=== PATIENT | male | born 1960 | race Two or more races ===

== ENCOUNTER 2023-12-26 13:18 | Inpatient (IN) | payer OTHER ==
[~2023-12-26] VITALS: Ht 175.3 cm; Wt 72.6 kg
[2023-12-26] MEDS ORDERED: COZAAR25 MG PO (14:28)
[2023-12-26] MEDS ORDERED: LANTUS SOL100 UNIT/1 SQ (14:28)
[2023-12-26] MEDS ORDERED: HUMALOG100 UNIT/2 SQ (14:29)
--- NOTE | 2023-12-26 14:33 | NUR ---
PTE ALERTA Y ORIENTADA X3 REFIERE VENIR A VASYL DEBIDO A QUE EL MISMO TIENE RESULTADOS DE LAB CON NIVELES DE HEMOGLOBINA EN 6.8. SE MIDEN S/V Y SE UBICA.
[2023-12-26] MEDS ORDERED: 0.9 % SODIUM CHLORIDE 1,000 ML IV SCH ×2 (15:00→19:15)
--- NOTE | 2023-12-26 15:42 | NUR ---
SE ORIENTA A PTE SOBRE TX MEDICO ORDENADO POR . SE REALIZA JOHN DE MUESTRA DE LAB [place] ORDEN MEDICA Y BAJO MEDIDAS ASEPTICAS. VENOPUNCION PATENTE X2 BLANCA DE EDEMA Y ERITEMA BAJANDO IV FLUIDS POR REGULADOR. SE REQUISAN 3 UNIDADES PRBCS, SE ENTREGAN DOCS A LABORATORIO.
[2023-12-26 15:50] LABS: MEAN CELL VOLUME 78.9 fL (80.0-100.00); MEAN CORPUSCULAR HGB CONC 34.1 g/dl (32.0-36.0); PLATELET COUNT 164 K/uL (150-450); RED BLOOD COUNT 2.82 M/uL (4.00-6.00); RED CELL DISTRIBUTION WIDTH 15.1 % (11.5-14.5)
[2023-12-26 15:59] LABS: HEMATOCRIT 22.3 % (39.0-48.0); HEMOGLOBIN 7.6 g/dL (13-16.00); MEAN CORPUSCULAR HEMOGLOBIN 26.9 pg (27.00-32.0)
[2023-12-26 16:04] LABS: INR 1.06; PROTHROMBIN TIME 11.5 SECONDS (9.0-11.5)
[2023-12-26 16:19] LABS: CALCIUM 8.8 mg/dL (8.5-10.1); GFR 6.85; POTASSIUM 4.79 mEq/L (3.5-5.1)
[2023-12-26 16:29] LABS: PH,URINE 5.5 (5.0-8.0); URINE APPEARANCE Clear; URINE BILIRRUBIN Negative (NEGATIVE); URINE BLOOD NHT; URINE COLOR Yellow; URINE KETONE Negative (NEGATIVE); URINE LEUKOCYTE Trace; URINE NITRATE Negative; URINE UROBILINOGEN 0.2 E.U./dl
[2023-12-26 16:32] LABS: URINE BACTERIA 35.2 uL (0.0-1933); URINE EPITHELIAL CELLS 8.8 uL (0.0-38.8); URINE RBC 2.5 uL (0.0-20.8); URINE WBC 60.2 uL (0.0-23.2)
[2023-12-26 16:40] LABS: CREATININE SERUM 8.04 mg/dL (0.70-1.30)
[2023-12-26 16:59] LABS: URINE CAST 0.15 uL (0.0-1.40); URINE GLUCOSE 500 MG/DL (NEGATIVE); URINE PROTEIN 300 (NEGATIVE)
[2023-12-26] MEDS ORDERED: INSULIN LISPRO 1,000 UNIT/10 ML UNITS SUBCUTANEO PRN (19:15)
[2023-12-26] MEDS ORDERED: hydrALAZINE HCL 25 MG TABLET PO PRN (19:15)
[2023-12-26] MEDS ORDERED: DEXTROSE 50 % IN WATER 0.5 G/ML DISP.SYRIN IV PRN (19:15)
[2023-12-26] MEDS ORDERED: hydrALAZINE HCL 20 MG VIAL IV ONE (19:15)
[2023-12-26] MEDS ORDERED: ACETAMINOPHEN 500 MG GEL..CAP PO PRN (19:15)
[2023-12-26 22:39] VITALS: BP 157/62
[2023-12-27 00:48] VITALS: BP 176/70; O2SAT 92
[2023-12-27 01:39] LABS: ABG PH 7.413 (7.35-7.45); ABG PO2 85.9 mmHg (80-100); BICARBONATE 20.6 mmol/l (23-25); SaO2 96.5 %; Tco2 21.6 mmol/l
[2023-12-27 01:40] LABS: allen test SATISFACTORY; o2 21 %; puncture site RADIAL RIGHT
[2023-12-27] MEDS ORDERED: FAMOTIDINE/PF 20 MG in 0.9 % SODIUM CHLORIDE 8 ML IV PUSH SCH (09:00)
[2023-12-27] MEDS ORDERED: NIFEDIPINE 30 MG TAB.SA.OSM PO SCH (09:00)
[2023-12-27 09:36] VITALS: BP 183/85; O2SAT 98
[2023-12-27] MEDS ORDERED: FUROsemide 20 MG/2 ML VIAL IV SCH (12:45)
[2023-12-27] MEDS ORDERED: CARVEDILOL 12.5 MG TABLET PO NR (13:00)
[2023-12-27] MEDS ORDERED: LOSARTAN POTASSIUM 100 MG TABLET PO NR (13:00)
[2023-12-27] MEDS ORDERED: AMLODIPINE BESYLATE 10 MG TABLET PO NR (13:00)
[2023-12-27 18:36] VITALS: BP 150/78; O2SAT 97
[2023-12-28 00:54] VITALS: BP 182/82; O2SAT 96
[2023-12-28 06:25] LABS: HEMATOCRIT 34.2 % (39.0-48.0); HEMOGLOBIN 11.8 g/dL (13-16.00); MEAN CELL VOLUME 79.7 fL (80.0-100.00); MEAN CORPUSCULAR HEMOGLOBIN 27.6 pg (27.00-32.0); MEAN CORPUSCULAR HGB CONC 34.6 g/dl (32.0-36.0); PLATELET COUNT 165 K/uL (150-450); RED BLOOD COUNT 4.29 M/uL (4.00-6.00); RED CELL DISTRIBUTION WIDTH 15.6 % (11.5-14.5)
[2023-12-28 08:20] LABS: CHOL HDL RATIO 3.6 (0-5.0); MAGNESIUM 1.8 mg/dL (1.8-2.4); PHOSPHOROUS 5.2 mg/dL (2.5-4.9); TSH 1.44 uIU/mL (0.358-3.74)
[2023-12-28] MEDS ORDERED: AMLODIPINE BESYLATE 10 MG TABLET PO SCH (09:00)
[2023-12-28] MEDS ORDERED: LOSARTAN POTASSIUM 50 MG TABLET PO SCH (09:00)
[2023-12-28] MEDS ORDERED: CARVEDILOL 12.5 MG TABLET PO SCH (09:00)
[2023-12-28 10:14] VITALS: BP 180/80; O2SAT 99
[2023-12-28 18:18] VITALS: BP 164/79
[2023-12-29 02:23] VITALS: BP 170/72
[2023-12-29] MEDS ORDERED: NIFEDIPINE 60 MG TAB.SA.OSM PO SCH (09:00)
[2023-12-29] MEDS ORDERED: SODIUM CHLORIDE 0.45 % 1,000 ML IV SCH (12:15)
[2023-12-29] MEDS ORDERED: DOXAZOSIN MESYLATE 2 MG TABLET PO NR (13:00)
[2023-12-29] MEDS ORDERED: HEPARIN SODIUM,PORCINE 1,000 UNITS/ML VIAL IV SCH (16:45)
[2023-12-29] MEDS ORDERED: HEPARIN SODIUM,PORCINE 1,000 UNITS/ML VIAL SPEPROC ONE (16:45)
[2023-12-29 20:14] VITALS: BP 182/86
[2023-12-30 01:45] VITALS: BP 162/78
[2023-12-30 07:10] LABS: BILIRUBIN TOTAL 0.5 mg/dL (0.3-1.2); CALCIUM 8.5 mg/dL (8.5-10.1); GFR 5.99; GLOBULINA 3.4 G/DL (2.4-3.5); PHOSPHOROUS 5.2 mg/dL (2.5-4.9); POTASSIUM 4.66 mEq/L (3.5-5.1); TOTAL PROTEIN 6.4 gm/dL (6.4-8.2)
[2023-12-30 08:10] LABS: CREATININE SERUM 9.04 mg/dL (0.70-1.30)
[2023-12-30 08:51] VITALS: BP 180/82; O2SAT 97
[2023-12-30] MEDS ORDERED: DOXAZOSIN MESYLATE 2 MG TABLET PO SCH (09:00)
[2023-12-30] MEDS ORDERED: TUBERCULIN,PURIF.PROT.DERIV. 10 SKIN.TEST SKIN.TEST ID NR (14:45)
[2023-12-30 15:43] LABS: URIC ACID 8.2 mg/dL (3.5-8.5)
[2023-12-30 19:22] VITALS: BP 160/83; O2SAT 96
[2023-12-31] MEDS ORDERED: ENALAPRILAT DIHYDRATE 1.25 MG/ML VIAL IV ONE (01:20)
[2023-12-31] MEDS ORDERED: MORPHINE SULFATE 2 MG/ML CARTRIDGE IV ONE (01:20)
[2023-12-31 04:00] VITALS: BP 167/77
[2023-12-31 09:59] VITALS: BP 174/89; O2SAT 98
[2023-12-31 16:49] VITALS: BP 147/70; O2SAT 99
[2023-12-31] MEDS ORDERED: INSULIN GLARGINE,HUM.REC.ANLOG 1,000 UNITS/10 ML UNITS SUBCUTANEO SCH (21:00)
[2024-01-01 00:59] VITALS: BP 179/82; O2SAT 95
[2024-01-01 07:09] LABS: hav igm Negative (Negative); hcv Non Reactive (Non Reactive); hep b c Negative (Negative)
[2024-01-01] MEDS ORDERED: INSULIN LISPRO 1,000 UNIT/10 ML UNITS SUBCUTANEO SCH ×2 (08:00→12:00)
[2024-01-01 09:39] VITALS: BP 179/82; O2SAT 97
[2024-01-01 16:39] VITALS: BP 162/73; O2SAT 98
[2024-01-01] MEDS ORDERED: HEPARIN SODIUM,PORCINE 5,000 UNITS/ML VIAL IV ONE (17:30)
[2024-01-02 02:05] VITALS: BP 160/70; O2SAT 97
[2024-01-02 08:34] VITALS: BP 164/4; O2SAT 98
[2024-01-02 12:04] LABS: hep b s ag Negative
[2024-01-02 15:51] LABS: BILIRUBIN TOTAL 0.39 mg/dL (0.3-1.2); CALCIUM 8.2 mg/dL (8.5-10.1); GFR 8.95; GLOBULINA 3.4 G/DL (2.4-3.5); POTASSIUM 4.58 mEq/L (3.5-5.1); TOTAL PROTEIN 6.4 gm/dL (6.4-8.2)
[2024-01-02 16:01] LABS: CREATININE SERUM 6.38 mg/dL (0.70-1.30)
[2024-01-02 18:13] VITALS: BP 196/78; O2SAT 97
[2024-01-03 01:34] VITALS: BP 182/89
[2024-01-03 05:45] VITALS: BP 179/84
[2024-01-03 08:00] VITALS: BP 158/77; O2SAT 98
[2024-01-03] MEDS ORDERED: HEPARIN SODIUM,PORCINE 5,000 UNITS/ML VIAL IV NR (17:30)
[2024-01-03 20:04] VITALS: BP 136/75
[2024-01-03] MEDS ORDERED: DOXAZOSIN MESYLATE 4 MG TABLET PO SCH (21:00)
[2024-01-04 00:12] VITALS: BP 170/80; O2SAT 96
[2024-01-04 01:54] VITALS: BP 130/80
[2024-01-04] MEDS ORDERED: NIFEDIPINE 90 MG TAB.SA.OSM PO SCH (09:00)
[2024-01-04 09:20] VITALS: BP 170/85
[2024-01-04 16:24] VITALS: BP 184/68
[2024-01-05 03:18] VITALS: BP 180/80; O2SAT 98
[2024-01-05 08:57] VITALS: BP 177/81
[2024-01-05 16:37] VITALS: BP 174/78
[2024-01-06 02:23] VITALS: BP 176/71; O2SAT 96
[2024-01-06 07:05] LABS: HEMATOCRIT 28.7 % (39.0-48.0); HEMOGLOBIN 9.9 g/dL (13-16.00); MEAN CELL VOLUME 79.8 fL (80.0-100.00); MEAN CORPUSCULAR HEMOGLOBIN 27.5 pg (27.00-32.0); MEAN CORPUSCULAR HGB CONC 34.4 g/dl (32.0-36.0)
[2024-01-06 07:18] LABS: PLATELET COUNT 118 K/uL (150-450)
[2024-01-06 10:30] VITALS: BP 138/77; O2SAT 95
[2024-01-06] MEDS ORDERED: VANCOMYCIN HCL 1,000 MG VIAL IV STA (11:49)
[2024-01-06] MEDS ORDERED: CEFEPIME HCL 1,000 MG VIAL IV SCH (17:00)
[2024-01-06] MEDS ORDERED: VANCOMYCIN HCL 500 MG VIAL IV SCH (17:00)
[2024-01-06] MEDS ORDERED: FLUCONAZOLE IN NACL,ISO-OSM 2 MG/ML ML IV SCH (17:00)
[2024-01-06] MEDS ORDERED: LACTOBACILLUS ACIDOPHILUS 1 CAP CAP PO SCH (17:00)
[2024-01-06] MEDS ORDERED: INSULIN LISPRO 1,000 UNIT/10 ML UNITS SUBCUTANEO SCH (17:00)
[2024-01-06] MEDS ORDERED: ACETAMINOPHEN 500 MG GEL..CAP PO SCH (18:00)
[2024-01-06] MEDS ORDERED: ORPHENADRINE CITRATE 100 MG TABLET PO SCH (18:13)
[2024-01-06 18:16] VITALS: BP 125/60; O2SAT 97
[2024-01-06] MEDS ORDERED: HEPARIN SODIUM,PORCINE 5,000 UNITS/ML VIAL IV NR (19:45)
[2024-01-06 22:50] VITALS: BP 153/77; O2SAT 95
[2024-01-07 00:15] VITALS: BP 146/67; O2SAT 96
[2024-01-07] MEDS ORDERED: ONDANSETRON HCL 2 MG/ML VIAL IV PRN (00:15)
[2024-01-07 01:00] LABS: PROSTATIC SPECIFIC ANTIGEN 0.495 NG/ML (0.010-4.00)
[2024-01-07 01:39] LABS: CALCIUM 8.2 mg/dL (8.5-10.1); GFR 13.15; POTASSIUM 3.63 mEq/L (3.5-5.1)
[2024-01-07 02:25] LABS: CREATININE SERUM 4.57 mg/dL (0.70-1.30); GFR 13.15
[2024-01-07 02:26] LABS: CALCIUM 8.2 mg/dL (8.5-10.1); CREATININE SERUM 4.57 mg/dL (0.70-1.30); POTASSIUM 3.63 mEq/L (3.5-5.1)
[2024-01-07 02:27] LABS: ALBUMIN 2.7 gm/dL (3.4-5.0); PHOSPHOROUS 1.8 mg/dL (2.5-4.9)
[2024-01-07 06:38] LABS: URINE APPEARANCE Turbid; URINE BILIRRUBIN Negative (NEGATIVE); URINE BLOOD Moderate; URINE COLOR Yellow; URINE KETONE Trace (NEGATIVE); URINE LEUKOCYTE Trace; URINE NITRATE Negative; URINE PROTEIN >=1000 (NEGATIVE); URINE UROBILINOGEN 0.2 E.U./dl
[2024-01-07 06:43] LABS: URINE BACTERIA 180.1 uL (0.0-1933); URINE CAST 20.64 uL (0.0-1.40); URINE EPITHELIAL CELLS 51.7 uL (0.0-38.8); URINE RBC 11.1 uL (0.0-20.8); URINE WBC 226.5 uL (0.0-23.2)
[2024-01-07 07:10] LABS: URINE CRYSTALS MODERATE /HPF; URINE GLUCOSE 250 MG/DL (NEGATIVE)
[2024-01-07] MEDS ORDERED: FLUTICASONE PROPIONATE 50 MCG SPRAY NASAL SCH (09:00)
[2024-01-07] MEDS ORDERED: LOSARTAN POTASSIUM 100 MG TABLET PO SCH (09:00)
[2024-01-07 09:20] VITALS: BP 140/57; O2SAT 93
[2024-01-07] MEDS ORDERED: MEGESTROL ACETATE 400 MG/10 ML BLIST PACK PO SCH (12:00)
[2024-01-07] MEDS ORDERED: POTASSIUM PHOS,M-BASIC-D-BASIC 15 MM in 0.9 % SODIUM CHLORIDE 250 ML IV ONE (14:00)
[2024-01-07 16:32] VITALS: BP 122/70; O2SAT 98
[2024-01-07] MEDS ORDERED: AMINO ACIDS 1 EACH TABLET PO SCH (17:00)
[2024-01-08 01:23] VITALS: BP 143/75; O2SAT 96
[2024-01-08 06:16] LABS: HEMATOCRIT 28.3 % (39.0-48.0); HEMOGLOBIN 9.5 g/dL (13-16.00); MEAN CELL VOLUME 80.5 fL (80.0-100.00); MEAN CORPUSCULAR HGB CONC 33.5 g/dl (32.0-36.0); RED BLOOD COUNT 3.51 M/uL (4.00-6.00); RED CELL DISTRIBUTION WIDTH 14.9 % (11.5-14.5)
[2024-01-08 06:18] LABS: PLATELET COUNT 112 K/uL (150-450)
[2024-01-08 06:29] LABS: ERYTHROCYTE SEDIMENTATION RATE 84 mm/hr
[2024-01-08 06:34] LABS: ALBUMIN 2.6 gm/dL (3.4-5.0); BILIRUBIN TOTAL 0.47 mg/dL (0.3-1.2); GLOBULINA 3.5 G/DL (2.4-3.5); POTASSIUM 3.88 mEq/L (3.5-5.1); TOTAL PROTEIN 6.1 gm/dL (6.4-8.2)
[2024-01-08 07:37] LABS: C-REACTIVE PROTEIN 17.5 MG/DL (0.00-0.29); GFR 7.57
[2024-01-08 07:38] LABS: CREATININE SERUM 7.38 mg/dL (0.70-1.30)
[2024-01-08 08:45] VITALS: BP 162/79
[2024-01-08] MEDS ORDERED: INSULIN LISPRO 1,000 UNIT/10 ML UNITS SUBCUTANEO SCH (12:00)
[2024-01-08 16:47] VITALS: BP 155/78; O2SAT 97
[2024-01-08] MEDS ORDERED: MUPIROCIN 22 GM OINT..GM TUBE NASAL SCH (17:00)
[2024-01-08] MEDS ORDERED: INSULIN GLARGINE,HUM.REC.ANLOG 1,000 UNITS/10 ML UNITS SUBCUTANEO SCH (21:00)
[2024-01-09] MEDS ORDERED: ONDANSETRON HCL 2 MG/ML VIAL IV SCH (01:00)
[2024-01-09 02:31] VITALS: BP 166/76; O2SAT 95
[2024-01-09 08:20] VITALS: BP 165/103; O2SAT 95
[2024-01-09] MEDS ORDERED: CHLORHEXIDINE GLUCONATE 120 ML BOTTLE TOP SCH (09:00)
[2024-01-09] MEDS ORDERED: INSULIN LISPRO 1,000 UNIT/10 ML UNITS SUBCUTANEO SCH ×2 (12:00→17:00)
[2024-01-09 18:04] VITALS: BP 160/81; O2SAT 97
[2024-01-09] MEDS ORDERED: GABAPENTIN 400 MG CAPSULE PO SCH (21:00)
[2024-01-09] MEDS ORDERED: MORPHINE SULFATE 2 MG/ML CARTRIDGE IV PRN (21:00)
[2024-01-09] MEDS ORDERED: TAMSULOSIN HCL 0.4 MG CAP PO SCH (21:00)
[2024-01-09] MEDS ORDERED: INSULIN GLARGINE,HUM.REC.ANLOG 1,000 UNITS/10 ML UNITS SUBCUTANEO SCH (21:00)
[2024-01-10 02:27] VITALS: BP 150/73; O2SAT 95
[2024-01-10 04:41] LABS: HEMATOCRIT 26.5 % (39.0-48.0); HEMOGLOBIN 9.4 g/dL (13-16.00); MEAN CELL VOLUME 78.9 fL (80.0-100.00); MEAN CORPUSCULAR HEMOGLOBIN 27.9 pg (27.00-32.0); MEAN CORPUSCULAR HGB CONC 35.3 g/dl (32.0-36.0); PLATELET COUNT 166 K/uL (150-450); RED BLOOD COUNT 3.36 M/uL (4.00-6.00); RED CELL DISTRIBUTION WIDTH 14.6 % (11.5-14.5)
[2024-01-10 06:01] LABS: ERYTHROCYTE SEDIMENTATION RATE 102 mm/hr
[2024-01-10 07:59] VITALS: BP 160/73; O2SAT 97
[2024-01-10 17:38] VITALS: BP 162/84
[2024-01-10] MEDS ORDERED: HEPARIN SODIUM,PORCINE 5,000 UNITS/ML VIAL IV ONE (20:45)
[2024-01-11 01:42] VITALS: BP 143/67; O2SAT 97
[2024-01-11 10:02] VITALS: BP 176/66; O2SAT 96
[2024-01-11 18:10] VITALS: BP 118/50
[2024-01-11] MEDS ORDERED: CYCLOBENZAPRINE HCL 5 MG TABLET PO SCH (21:00)
[2024-01-12 00:50] VITALS: BP 151/75; O2SAT 97
[2024-01-12 08:04] VITALS: BP 187/74; O2SAT 97
[2024-01-12 19:03] VITALS: BP 150/80
[2024-01-13 01:09] VITALS: BP 208/77; O2SAT 97
[2024-01-13 10:21] VITALS: BP 170/72; O2SAT 96
[2024-01-13] MEDS ORDERED: IRON FUM,PS/FOLIC ACID/VITC/B3 1 CAP CAPSULE PO SCH (13:29)
[2024-01-13 16:51] VITALS: BP 155/73; O2SAT 98
[2024-01-13] MEDS ORDERED: EPOETIN ALFA-EPBX 10,000 UNIT/ML VIAL (Retacrit) SUBCUTANEO SCH (17:00)
[2024-01-13] MEDS ORDERED: VANCOMYCIN HCL 5 MG/ML REDILUIDO IV SCH (17:00)
[2024-01-13] MEDS ORDERED: CYCLOBENZAPRINE HCL 5 MG TABLET PO SCH (21:00)
[2024-01-13] MEDS ORDERED: DOCUSATE SODIUM 100MG CAP PO SCH (21:00)
[2024-01-13] MEDS ORDERED: INSULIN GLARGINE,HUM.REC.ANLOG 1,000 UNITS/10 ML UNITS SUBCUTANEO SCH (21:00)
[2024-01-14 00:45] VITALS: BP 180/70; O2SAT 95
[2024-01-14 09:07] VITALS: BP 184/78; O2SAT 95
[2024-01-14 09:08] VITALS: BP 180/72
[2024-01-14] MEDS ORDERED: LACTULOSE 20 G/30 ML BLIST.PACK PO STA (13:55)
[2024-01-14] MEDS ORDERED: MAGNESIUM HYDROXIDE 30 ML BLIST.PACK PO STA (13:56)
[2024-01-14] MEDS ORDERED: MINERAL OIL 30 ML BLIST.PACK PO STA (13:56)
[2024-01-14 17:02] VITALS: BP 147/66; O2SAT 96
[2024-01-14] MEDS ORDERED: INSULIN GLARGINE,HUM.REC.ANLOG 1,000 UNITS/10 ML UNITS SUBCUTANEO SCH (21:00)
[2024-01-14 22:25] VITALS: BP 147/65; O2SAT 95
[2024-01-15 01:31] VITALS: BP 184/75; O2SAT 95
[2024-01-15 09:22] VITALS: BP 174/69; O2SAT 97
[2024-01-15 17:44] VITALS: BP 180/77
[2024-01-15] MEDS ORDERED: HEPARIN SODIUM,PORCINE 5,000 UNITS/ML VIAL IV ONE (20:00)
[2024-01-16 02:05] VITALS: BP 180/70; O2SAT 95
[2024-01-16 08:41] VITALS: BP 178/85; O2SAT 100
[2024-01-16 19:13] VITALS: BP 160/70
[2024-01-17 02:50] VITALS: BP 180/86
[2024-01-17 09:29] VITALS: BP 180/90; O2SAT 95
[2024-01-17] MEDS ORDERED: LACTULOSE 20 G/30 ML BLIST.PACK PO STA (16:16)
[2024-01-17] MEDS ORDERED: MINERAL OIL 30 ML BLIST.PACK PO STA (16:17)
[2024-01-17] MEDS ORDERED: MAGNESIUM HYDROXIDE 400 MG/5 ML ML PO STA (16:17)
[2024-01-17] MEDS ORDERED: MAGNESIUM HYDROXIDE 30 ML BLIST.PACK PO STA (16:18)
[2024-01-17] MEDS ORDERED: hydrALAZINE HCL 20 MG VIAL IV PRN (16:30)
[2024-01-17 16:51] VITALS: BP 197/93; O2SAT 97
[2024-01-17] MEDS ORDERED: BISACODYL 10 MG/SUPP.RECT SUPP.RECT RECTAL SCH (17:00)
[2024-01-17 21:14] VITALS: BP 180/70
[2024-01-18 01:07] VITALS: BP 150/68; O2SAT 97
[2024-01-18 08:52] VITALS: BP 167/66
[2024-01-18 17:40] VITALS: BP 143/71
[2024-01-19 01:02] VITALS: BP 170/74; O2SAT 95
[2024-01-19 06:11] VITALS: BP 150/50
[2024-01-19 08:17] VITALS: BP 157/76; O2SAT 95
[2024-01-19 16:00] VITALS: BP 158/77; O2SAT 98
[2024-01-20 01:15] VITALS: BP 153/69; O2SAT 96
[2024-01-20 06:37] LABS: ERYTHROCYTE SEDIMENTATION RATE 65 mm/hr
[2024-01-20 06:47] LABS: HEMATOCRIT 25.5 % (39.0-48.0); MEAN CELL VOLUME 78.3 fL (80.0-100.00); MEAN CORPUSCULAR HGB CONC 34.3 g/dl (32.0-36.0); PLATELET COUNT 275 K/uL (150-450); RED BLOOD COUNT 3.26 M/uL (4.00-6.00); RED CELL DISTRIBUTION WIDTH 14.5 % (11.5-14.5)
[2024-01-20 06:51] LABS: HEMOGLOBIN 8.7 g/dL (13-16.00); MEAN CORPUSCULAR HEMOGLOBIN 26.6 pg (27.00-32.0)
[2024-01-20 07:17] LABS: ALBUMIN 2.8 gm/dL (3.4-5.0); PHOSPHOROUS 5.3 mg/dL (2.5-4.9); POTASSIUM 5.23 mEq/L (3.5-5.1)
[2024-01-20 07:39] LABS: GFR 4.01
[2024-01-20 07:40] LABS: CREATININE SERUM 12.8 mg/dL (0.70-1.30)
[2024-01-20 07:43] LABS: C-REACTIVE PROTEIN 6.3 MG/DL (0.00-0.29)
[2024-01-20 10:22] VITALS: BP 190/71; O2SAT 96
[2024-01-20] MEDS ORDERED: SODIUM POLYSTYRENE SULFONATE 15 G/4 TSP TSP PO SCH (11:22)
[2024-01-20 16:46] VITALS: BP 160/80; O2SAT 97
[2024-01-20] MEDS ORDERED: HEPARIN SODIUM,PORCINE 500 UNITS/5 ML VIAL IV ONE (20:15)
[2024-01-20] MEDS ORDERED: BUPIVACAINE HCL 30 ML VIAL IJ ONE (20:15)
[2024-01-20] MEDS ORDERED: INSULIN GLARGINE,HUM.REC.ANLOG 1,000 UNITS/10 ML UNITS SUBCUTANEO SCH (21:00)
[2024-01-21 03:15] VITALS: BP 166/67; O2SAT 93
[2024-01-21 07:22] LABS: HEMATOCRIT 27.2 % (39.0-48.0); HEMOGLOBIN 9.8 g/dL (13-16.00); MEAN CELL VOLUME 77.7 fL (80.0-100.00); PLATELET COUNT 249 K/uL (150-450); RED BLOOD COUNT 3.51 M/uL (4.00-6.00); RED CELL DISTRIBUTION WIDTH 14.6 % (11.5-14.5)
[2024-01-21 08:04] VITALS: BP 179/75; O2SAT 96
[2024-01-21 16:48] VITALS: BP 160/73; O2SAT 96
[2024-01-21] MEDS ORDERED: HEPARIN SODIUM,PORCINE 5,000 UNITS/ML VIAL IV NR (21:00)
[2024-01-22 01:46] VITALS: BP 187/83; O2SAT 97
[2024-01-22 07:23] LABS: ALBUMIN 2.6 gm/dL (3.4-5.0); BILIRUBIN TOTAL 0.48 mg/dL (0.3-1.2); CALCIUM 8.3 mg/dL (8.5-10.1); GFR 5.37; GLOBULINA 3.5 G/DL (2.4-3.5); POTASSIUM 3.84 mEq/L (3.5-5.1); TOTAL PROTEIN 6.1 gm/dL (6.4-8.2)
[2024-01-22 07:52] VITALS: BP 202/80; O2SAT 95
[2024-01-22 07:59] LABS: CREATININE SERUM 9.93 mg/dL (0.70-1.30)
[2024-01-22 18:38] VITALS: BP 171/90
[2024-01-22] MEDS ORDERED: HEPARIN SODIUM,PORCINE 5,000 UNITS/ML VIAL IV ONE (19:00)
[2024-01-22] MEDS ORDERED: MORPHINE SULFATE 2 MG/ML CARTRIDGE IV PRN (23:45)
[2024-01-23 02:45] VITALS: BP 193/78
[2024-01-23 08:51] VITALS: BP 180/80
[2024-01-23 17:37] VITALS: BP 159/76
[2024-01-23] MEDS ORDERED: INSULIN GLARGINE,HUM.REC.ANLOG 1,000 UNITS/10 ML UNITS SUBCUTANEO SCH (21:00)
[2024-01-24 02:22] VITALS: BP 141/65
[2024-01-24 08:20] VITALS: BP 160/62; O2SAT 99
[2024-01-24] MEDS ORDERED: COLACE100 MG PO (12:29)
[2024-01-24] MEDS ORDERED: PROCARDIA XL90 MG PO (12:29)
[2024-01-24] MEDS ORDERED: Lantus 1000 UNITS/10 SUBCUTANEO (12:29)
[2024-01-24] MEDS ORDERED: NeuRONTin 400MG CAPS PO (12:29)
[2024-01-24] MEDS ORDERED: LOSARTAN POTAS100 MG PO (12:29)
[2024-01-24] MEDS ORDERED: TAMS0.4C PO (12:29)
[2024-01-24] MEDS ORDERED: INTEGRA F CAPS1 EACH PO (12:29)
[2024-01-24] MEDS ORDERED: CARVEDILOL12.5 MG PO (12:29)
[2024-01-24] MEDS ORDERED: DOXAZOSIN MESYLA4 MG PO (12:29)
[2024-01-24 17:05] VITALS: BP 115/72
== END 2024-01-24 21:34 | disposition home or self-care (01) | DRG 682 ==
LOC: ER 13:19 → MEDI 20:52 → MEDJ 20:52 → MEDI 12-31 16:01
PROVIDERS: Emergency Medicine; General Practice; Internal Medicine Geriatric Medicine; Internal Medicine Infectious Disease; Radiology Vascular & Interventional Radiology; Specialist; Specialist/Technologist, Other Nephrology; ADMIT Internal Medicine; ATTEND Internal Medicine
PROC: BT4JZZZ Ultrasonography of Kidneys and Bladder (ICD-10-PCS; 2023-12-26)
PROC: 30233N1 Transfusion of Nonautologous Red Blood Cells into Peripheral Vein, Percutaneous Approach (ICD-10-PCS; 2023-12-27)
PROC: 0JH63XZ Insertion of Tunneled Vascular Access Device into Chest Subcutaneous Tissue and Fascia, Percutaneous Approach (ICD-10-PCS; principal; 2023-12-30 21:00)
PROC: 5A1D70Z Performance of Urinary Filtration, Intermittent, Less than 6 Hours Per Day (ICD-10-PCS; 2024-01-01)
PROC: B24BZZZ Ultrasonography of Heart with Aorta (ICD-10-PCS; 2024-01-08)
PROC: 5A1D70Z Performance of Urinary Filtration, Intermittent, Less than 6 Hours Per Day (ICD-10-PCS; 2024-01-08)
PROC: 05PYX3Z Removal of Infusion Device from Upper Vein, External Approach (ICD-10-PCS; 2024-01-09)
PROC: 05HN33Z Insertion of Infusion Device into Left Internal Jugular Vein, Percutaneous Approach (ICD-10-PCS; 2024-01-09)
PROC: 5A1D70Z Performance of Urinary Filtration, Intermittent, Less than 6 Hours Per Day (ICD-10-PCS; 2024-01-10)
PROC: 05PYX3Z Removal of Infusion Device from Upper Vein, External Approach (ICD-10-PCS; 2024-01-20)
PROC: 05HM33Z Insertion of Infusion Device into Right Internal Jugular Vein, Percutaneous Approach (ICD-10-PCS; 2024-01-20)
PROC: 5A1D70Z Performance of Urinary Filtration, Intermittent, Less than 6 Hours Per Day (ICD-10-PCS; 2024-01-24)
DX: I12.9 Hypertensive chronic kidney disease with stage 1 through stage 4 chronic kidney disease, or unspecified chronic kidney disease (principal); A41.02 Sepsis due to Methicillin resistant Staphylococcus aureus; N17.9 Acute kidney failure, unspecified; T80.211A Bloodstream infection due to central venous catheter, initial encounter; N18.6 End stage renal disease; E11.22 Type 2 diabetes mellitus with diabetic chronic kidney disease; Z79.4 Long term (current) use of insulin; E11.65 Type 2 diabetes mellitus with hyperglycemia; D63.1 Anemia in chronic kidney disease; E78.5 Hyperlipidemia, unspecified; Z99.2 Dependence on renal dialysis; N40.0 Benign prostatic hyperplasia without lower urinary tract symptoms; F43.20 Adjustment disorder, unspecified; M75.52 Bursitis of left shoulder

== ENCOUNTER 2024-03-17 15:16 | Inpatient (IN) | payer OTHER ==
[~2024-03-17] VITALS: Ht 167.6 cm; Wt 68.0 kg
[~2024-03-17 15:16] MED LIST: CARVEDILOL12.5 MG PO; COLACE100 MG PO; COZAAR25 MG PO; DOXAZOSIN MESYLA4 MG PO; HUMALOG100 UNIT/2 SQ; INTEGRA F CAPS1 EACH PO; LANTUS SOL100 UNIT/1 SQ; LOSARTAN POTAS100 MG PO; Lantus 1000 UNITS/10 SUBCUTANEO; NeuRONTin 400MG CAPS PO; PROCARDIA XL90 MG PO; TAMS0.4C PO
--- NOTE | 2024-03-17 15:36 | NUR ---
SE RECIBE PTE ALERTA Y ORIENTADO SOLO EN PERSONA Y LUGAR. PTE SE OBSERVA ATURDIDO Y REPITE ADILIA PALABRAS, PTE ACOMPANADO DE HIJO QUIEN INDICA PTE ESTABA EN HOGAR Y SE DESPLOMO. SE MIDEN SV Y BP MANUAL RESULTA 190/90, SE REALIZA EKG Y SE PRESENTA A DR. CINTRON QUIEN INDICA UBICAR PTE EN OBSERVACION.
--- NOTE | 2024-03-17 17:32 | NUR ---
PTE EVALUADO POR MD FLORES. MAREK BARNARD ORIENTA SOBRE TRATAMIENTO MEDICO. SE RAYNE MUESTRAS DE LAB POR ORDEN MEDICA
[2024-03-17 17:50] LABS: HEMATOCRIT 24.1 % (39.0-48.0); MEAN CELL VOLUME 79.3 fL (80.0-100.00); MEAN CORPUSCULAR HGB CONC 34.9 g/dl (32.0-36.0); PLATELET COUNT 387 K/uL (150-450); RED BLOOD COUNT 3.04 M/uL (4.00-6.00); RED CELL DISTRIBUTION WIDTH 16.4 % (11.5-14.5)
[2024-03-17 17:51] LABS: HEMOGLOBIN 8.4 g/dL (13-16.00); MEAN CORPUSCULAR HEMOGLOBIN 27.6 pg (27.00-32.0)
[2024-03-17 18:02] LABS: INR 1.12; PARTIAL THROMBOPLASTIN TIME 27.1 SECONDS (22.0-34.0); PROTHROMBIN TIME 12.1 SECONDS (9.0-11.5)
[2024-03-17 18:11] LABS: ALBUMIN 2.6 gm/dL (3.4-5.0); BILIRUBIN TOTAL 0.6 mg/dL (0.3-1.2); CALCIUM 9.9 mg/dL (8.5-10.1); GFR 12.52; GLOBULINA 5.8 G/DL (2.4-3.5); POTASSIUM 4.47 mEq/L (3.5-5.1); TOTAL PROTEIN 8.4 gm/dL (6.4-8.2)
[2024-03-17 18:16] LABS: CREATININE SERUM 4.77 mg/dL (0.70-1.30)
[2024-03-17] MEDS ORDERED: PIPERACILLIN/TAZOBACTAM SODIUM 2.25 GM in DEXTROSE 5 % IN WATER 50 ML IV SCH (21:37)
[2024-03-17] MEDS ORDERED: ASPIRIN 81 MG TAB.CHEW PO SCH (21:40)
[2024-03-17] MEDS ORDERED: VANCOMYCIN HCL 1,000 MG VIAL IV ONE (21:45)
[2024-03-17] MEDS ORDERED: ONDANSETRON HCL 4 MG in 0.9 % SODIUM CHLORIDE 50 ML IV PRN (21:45)
[2024-03-17] MEDS ORDERED: DEXTROSE 50 % IN WATER 0.5 G/ML DISP.SYRIN IV PRN (21:45)
[2024-03-17] MEDS ORDERED: INSULIN LISPRO 1,000 UNIT/10 ML UNITS SUBCUTANEO PRN (21:45)
[2024-03-17] MEDS ORDERED: ACETAMINOPHEN 500 MG GEL..CAP PO PRN (21:45)
[2024-03-17] MEDS ORDERED: DEXTROSE 5 %-0.45 % SOD CHLORD 1,000 ML IV SCH (21:45)
[2024-03-17] MEDS ORDERED: HEPARIN SODIUM,PORCINE 1,000 UNITS/ML VIAL SPEPROC ONE (23:15)
[2024-03-17] MEDS ORDERED: HEPARIN SODIUM,PORCINE 1,000 UNITS/ML VIAL IV SCH (23:15)
[2024-03-17 23:25] LABS: INR 1.1; PARTIAL THROMBOPLASTIN TIME 27.1 SECONDS (22.0-34.0); PROTHROMBIN TIME 11.9 SECONDS (9.0-11.5)
[2024-03-18] MEDS ORDERED: ASPIRIN 81 MG TAB.CHEW PO ONE
[2024-03-18 03:14] VITALS: BP 185/70; O2SAT 100
[2024-03-18 06:31] VITALS: O2SAT 91
[2024-03-18] MEDS ORDERED: HALOPERIDOL LACTATE 5 MG/ML AMPUL IM PRN (08:15)
[2024-03-18] MEDS ORDERED: hydrALAZINE HCL 25 MG TABLET PO SCH (09:00)
[2024-03-18] MEDS ORDERED: NIFEDIPINE 90 MG TAB.SA.OSM PO SCH (09:00)
[2024-03-18] MEDS ORDERED: ATORVASTATIN CALCIUM 40 MG TABLET PO SCH (09:00)
[2024-03-18] MEDS ORDERED: TAMSULOSIN HCL 0.4 MG CAP PO SCH (09:00)
[2024-03-18] MEDS ORDERED: CARVEDILOL 12.5 MG TABLET PO SCH (09:00)
[2024-03-18] MEDS ORDERED: PANTOPRAZOLE SODIUM 40 MG/VIAL VIAL IV SCH (09:00)
[2024-03-18] MEDS ORDERED: CLONAZEPAM 0.5 MG TABLET PO STA (11:26)
[2024-03-18] MEDS ORDERED: HEPARIN SODIUM,PORCINE 5,000 UNITS/ML VIAL IJ ONE (16:00)
[2024-03-18] MEDS ORDERED: HEPARIN SODIUM,PORCINE 5,000 UNITS/ML VIAL ONE (16:08)
[2024-03-18 17:00] VITALS: O2SAT 96
[2024-03-18] MEDS ORDERED: CLONAZEPAM 0.5 MG TABLET PO SCH (17:00)
[2024-03-18 17:59] VITALS: BP 190/90; O2SAT 99
[2024-03-18 19:23] VITALS: O2SAT 97
[2024-03-18] MEDS ORDERED: hydrALAZINE HCL 20 MG VIAL IV SCH (21:06)
[2024-03-18] MEDS ORDERED: cloNIDine 0.2 MG/24 H PATCH.TDWK TD SCH (21:10)
[2024-03-18] MEDS ORDERED: cloNIDine 0.2 MG/24 H PATCH.TDWK TD ONE (21:23)
[2024-03-18] MEDS ORDERED: hydrALAZINE HCL 20 MG VIAL ONE (21:24)
[2024-03-19] VITALS (7 sets, daily range): BP systolic 110–190; BP diastolic 80–98; O2SAT 95–99
[2024-03-19] MEDS ORDERED: hydrALAZINE HCL 50 MG TABLET PO SCH (09:00)
[2024-03-19 12:32] LABS: URINE APPEARANCE Cloudy; URINE BILIRRUBIN Negative (NEGATIVE); URINE BLOOD Negative; URINE COLOR Yellow; URINE KETONE Trace (NEGATIVE); URINE LEUKOCYTE Negative; URINE NITRATE Negative; URINE PROTEIN >=1000 (NEGATIVE)
[2024-03-19 12:33] LABS: URINE BACTERIA 9.7 uL (0.0-1933); URINE CAST 3.97 uL (0.0-1.40); URINE EPITHELIAL CELLS 7.4 uL (0.0-38.8); URINE RBC 12.5 uL (0.0-20.8); URINE WBC 33.5 uL (0.0-23.2)
[2024-03-19 12:58] LABS: URINE GLUCOSE 500 MG/DL (NEGATIVE)
[2024-03-19] MEDS ORDERED: VANCOMYCIN HCL 1,000 MG VIAL IV STA (13:05)
[2024-03-19] MEDS ORDERED: LACTOBACILLUS ACIDOPHILUS 1 CAP CAP PO SCH (17:00)
[2024-03-20] VITALS (8 sets, daily range): BP systolic 106–141; BP diastolic 63–75; O2SAT 90–100
[2024-03-20] MEDS ORDERED: CHLORHEXIDINE GLUCONATE 120 ML BOTTLE TOP SCH (09:00)
[2024-03-20] MEDS ORDERED: MUPIROCIN 22 GM OINT..GM TUBE NASAL SCH (10:16)
[2024-03-20] MEDS ORDERED: HEPARIN SODIUM,PORCINE 5,000 UNITS/ML VIAL ONE ×2 (14:28→14:44)
[2024-03-20] MEDS ORDERED: LACTOBACILLUS ACIDOPHILUS 1 CAP CAP PO SCH (17:00)
[2024-03-21] VITALS (8 sets, daily range): BP systolic 134–155; BP diastolic 72–75; O2SAT 96–100
[2024-03-21] MEDS ORDERED: VANCOMYCIN HCL 500 MG VIAL IV SCH (18:00)
[2024-03-21 18:10] LABS: MEAN CORPUSCULAR HGB CONC 33.7 g/dl (32.0-36.0); PLATELET COUNT 373 K/uL (150-450); RED BLOOD COUNT 2.83 M/uL (4.00-6.00); RED CELL DISTRIBUTION WIDTH 16.7 % (11.5-14.5)
[2024-03-21 18:15] LABS: HEMOGLOBIN 7.6 g/dL (13-16.00); MEAN CORPUSCULAR HEMOGLOBIN 26.8 pg (27.00-32.0)
[2024-03-21 18:16] LABS: HEMATOCRIT 22.6 % (39.0-48.0)
[2024-03-21 18:29] LABS: CALCIUM 9.2 mg/dL (8.5-10.1); GFR 8.58; POTASSIUM 4.32 mEq/L (3.5-5.1)
[2024-03-21 18:44] LABS: CREATININE SERUM 6.62 mg/dL (0.70-1.30)
[2024-03-22] VITALS (9 sets, daily range): BP systolic 102–155; BP diastolic 54–69; O2SAT 90–100
[2024-03-22] MEDS ORDERED: MORPHINE SULFATE 2 MG/ML CARTRIDGE IV PRN (10:15)
[2024-03-23] VITALS (8 sets, daily range): BP systolic 130–150; BP diastolic 54–67; O2SAT 90–100
[2024-03-23 06:30] LABS: MEAN CELL VOLUME 81.2 fL (80.0-100.00); MEAN CORPUSCULAR HGB CONC 34.2 g/dl (32.0-36.0); PLATELET COUNT 318 K/uL (150-450); RED BLOOD COUNT 2.64 M/uL (4.00-6.00); RED CELL DISTRIBUTION WIDTH 15.9 % (11.5-14.5)
[2024-03-23 06:44] LABS: HEMATOCRIT 21.4 % (39.0-48.0); HEMOGLOBIN 7.3 g/dL (13-16.00); MEAN CORPUSCULAR HEMOGLOBIN 27.6 pg (27.00-32.0)
[2024-03-23] MEDS ORDERED: HEPARIN SODIUM,PORCINE 1,000 UNITS/ML VIAL IV SCH (14:00)
[2024-03-23] MEDS ORDERED: HEPARIN SODIUM,PORCINE 5,000 UNITS/ML VIAL ONE ×2 (14:47→16:14)
[2024-03-23] MEDS ORDERED: HEPARIN SODIUM,PORCINE 5,000 UNITS/ML VIAL IV NR (16:15)
[2024-03-23] MEDS ORDERED: ORPHENADRINE CITRATE 100 MG TABLET PO PRN (20:45)
[2024-03-23] MEDS ORDERED: ORPHENADRINE CITRATE 100 MG TABLET PO SCH (22:45)
[2024-03-24 00:39] VITALS: O2SAT 97
[2024-03-24 00:39] LABS: HEMATOCRIT 31.5 % (39.0-48.0); HEMOGLOBIN 10.8 g/dL (13-16.00); MEAN CORPUSCULAR HEMOGLOBIN 27.6 pg (27.00-32.0); MEAN CORPUSCULAR HGB CONC 34.4 g/dl (32.0-36.0); PLATELET COUNT 310 K/uL (150-450); RED BLOOD COUNT 3.93 M/uL (4.00-6.00); RED CELL DISTRIBUTION WIDTH 15.9 % (11.5-14.5)
[2024-03-24 01:20] VITALS: BP 152/81; O2SAT 98
[2024-03-24 06:11] VITALS: O2SAT 98
[2024-03-24 08:34] VITALS: BP 116/67; O2SAT 97
[2024-03-24 09:46] VITALS: O2SAT 94
[2024-03-24 16:18] VITALS: BP 170/75; O2SAT 99
[2024-03-24] MEDS ORDERED: IOVERSOL 320 MG/ML - 50 ML VIAL IV ONE (20:11)
[2024-03-24] MEDS ORDERED: BUPIVACAINE HCL/MPF 0.5% 30ML VIAL ONE (20:11)
[2024-03-24] MEDS ORDERED: HEPARIN SODIUM,PORCINE 5,000 UNITS/ML VIAL ONE (20:17)
[2024-03-24] MEDS ORDERED: TRAMADOL HCL 50 MG TABLET PO PRN (23:00)
[2024-03-25 01:40] VITALS: BP 152/59
[2024-03-25 08:45] VITALS: BP 128/71; O2SAT 98
[2024-03-25] MEDS ORDERED: HEPARIN SODIUM,PORCINE 5,000 UNITS/ML VIAL ONE (15:54)
[2024-03-25 16:31] VITALS: BP 153/74
[2024-03-25] MEDS ORDERED: VANCOMYCIN HCL 500 MG VIAL IV SCH (18:00)
[2024-03-26 01:42] VITALS: BP 159/81; O2SAT 96
[2024-03-26 08:16] VITALS: BP 173/78
[2024-03-26 08:51] VITALS: O2SAT 100
[2024-03-26 21:00] VITALS: BP 138/66
[2024-03-27 00:46] VITALS: BP 87/53; O2SAT 98
[2024-03-27 09:09] VITALS: BP 128/67; O2SAT 98
[2024-03-27] MEDS ORDERED: HEPARIN SODIUM,PORCINE 5,000 UNITS/ML VIAL ONE (16:59)
[2024-03-27 18:39] VITALS: BP 139/68
[2024-03-28 01:32] VITALS: BP 167/69; O2SAT 98
[2024-03-28 08:21] VITALS: BP 154/75; O2SAT 98
== END 2024-03-28 10:35 | disposition home or self-care (01) | DRG 64 ==
LOC: ER 15:16 → SEC-K 21:40 → MEDI 21:40 → MEDJ 03-20 18:15 → MEDI 03-20 19:10
PROVIDERS: General Practice; Radiology Vascular & Interventional Radiology; Student in an Organized Health Care Education/Training Program; ADMIT Internal Medicine; ATTEND Internal Medicine
PROC: B020ZZZ Computerized Tomography (CT Scan) of Brain (ICD-10-PCS; 2024-03-17)
PROC: B24BYZZ Ultrasonography of Heart with Aorta using Other Contrast (ICD-10-PCS; 2024-03-17)
PROC: B345ZZZ Ultrasonography of Bilateral Common Carotid Arteries (ICD-10-PCS; 2024-03-17)
PROC: 5A1D70Z Performance of Urinary Filtration, Intermittent, Less than 6 Hours Per Day (ICD-10-PCS; 2024-03-18)
PROC: 4A12X4Z Monitoring of Cardiac Electrical Activity, External Approach (ICD-10-PCS; 2024-03-18)
PROC: CW2 Nuclear Medicine, Anatomical Regions, Tomographic (Tomo) Nuclear Medicine Imaging (ICD-10-PCS; 2024-03-19)
PROC: 30233N1 Transfusion of Nonautologous Red Blood Cells into Peripheral Vein, Percutaneous Approach (ICD-10-PCS; 2024-03-23)
PROC: 0JHF3XZ Insertion of Tunneled Vascular Access Device into Left Upper Arm Subcutaneous Tissue and Fascia, Percutaneous Approach (ICD-10-PCS; 2024-03-24)
PROC: 02PY33Z Removal of Infusion Device from Great Vessel, Percutaneous Approach (ICD-10-PCS; 2024-03-24)
PROC: 05HM33Z Insertion of Infusion Device into Right Internal Jugular Vein, Percutaneous Approach (ICD-10-PCS; 2024-03-24)
PROC: 0JPV3XZ Removal of Tunneled Vascular Access Device from Upper Extremity Subcutaneous Tissue and Fascia, Percutaneous Approach (ICD-10-PCS; principal; 2024-03-24 18:00)
PROC: 5A1D70Z Performance of Urinary Filtration, Intermittent, Less than 6 Hours Per Day (ICD-10-PCS; 2024-03-25)
DX: I63.9 Cerebral infarction, unspecified (principal); A41.9 Sepsis, unspecified organism; N18.6 End stage renal disease; G45.9 Transient cerebral ischemic attack, unspecified; T82.7XXA Infection and inflammatory reaction due to other cardiac and vascular devices, implants and grafts, initial encounter; E11.9 Type 2 diabetes mellitus without complications; Z79.4 Long term (current) use of insulin; I10 Essential (primary) hypertension; D64.9 Anemia, unspecified; G62.9 Polyneuropathy, unspecified; A49.02 Methicillin resistant Staphylococcus aureus infection, unspecified site; E11.22 Type 2 diabetes mellitus with diabetic chronic kidney disease; Z99.2 Dependence on renal dialysis

== ENCOUNTER → 2024-06-23 | Emergency (ER) | payer OTHER ==
[~2024-06-23] MED LIST changes: +DEPO-MEDRO40 MG/1 ML IJ; +NORFLEX100MG PO; +XYLOCAINE10 MG/1 ML IJ
== END | disposition home or self-care (01) ==
LOC: ER 09:20
DX: M54.50 Low back pain, unspecified (principal); E11.9 Type 2 diabetes mellitus without complications; Z79.4 Long term (current) use of insulin; I10 Essential (primary) hypertension; M51.369 Other intervertebral disc degeneration, lumbar region without mention of lumbar back pain or lower extremity pain
CPT/HCPCS: 72100; 96372; 99283; J2360

== ENCOUNTER 2024-07-24 16:15 | Emergency (ER) | payer OTHER ==
[~2024-07-24] VITALS: Ht 170.2 cm; Wt 72.6 kg
[2024-07-24 16:35] VITALS: BP 190/90; O2SAT 98
[2024-07-24] MEDS ORDERED: cloNIDine HCL 0.2 MG TABLET PO STA (17:25)
[2024-07-24] MEDS ORDERED: CLONIDINE HCL 0.1 MG TABLET PO ONE (17:47)
[2024-07-24 18:28] LABS: BASO % 0.3 % (0.1-1.2); EOS # 0.03 (0.04-0.54); EOS % 0.3 % (0.7-7.0); HEMATOCRIT 28.3 % (40.1-51.0); HEMOGLOBIN 9.5 g/dL (13.7-17.5); LYMPH # 0.83 (1.18-3.74); LYMPH % 7.3 % (19.3-53.1); MEAN CORPUSCULAR HEMOGLOBIN 26.9 pg (25.6-32.2); MONO # 0.81 (0.24-0.82); MONO % 7.1 % (4.7-12.5); NEUT % 84.6 % (34.0-71.1); PLATELET COUNT 329 K/uL (163-369); RED BLOOD COUNT 3.53 M/uL (4.63-6.08); RED CELL DISTRIBUTION WIDTH 15.5 % (11.6-14.4)
[2024-07-24 19:01] LABS: PH,URINE 8.5 (5.0-8.0); URINE APPEARANCE Clear; URINE BILIRRUBIN Negative (NEGATIVE); URINE COLOR Yellow; URINE KETONE Negative (NEGATIVE); URINE LEUKOCYTE Negative; URINE NITRATE Negative; URINE UROBILINOGEN 0.2 E.U./dl
[2024-07-24 19:02] LABS: URINE BACTERIA 24.4 uL (0.0-1933); URINE EPITHELIAL CELLS 1.5 uL (0.0-38.8); URINE RBC 31.8 uL (0.0-20.8); URINE WBC 20.4 uL (0.0-23.2)
[2024-07-24 19:08] LABS: URINE BLOOD Trace; URINE CAST 0.58 uL (0.0-1.40); URINE GLUCOSE 500 MG/DL (NEGATIVE); URINE PROTEIN 300 (NEGATIVE)
[2024-07-24 19:25] LABS: ALBUMIN 2.4 gm/dL (3.4-5.0); BILIRUBIN TOTAL 0.92 mg/dL (0.3-1.2); CALCIUM 9.6 mg/dL (8.5-10.1); GFR 7.14; GLOBULINA 6.3 G/DL (2.4-3.5); POTASSIUM 4.79 mEq/L (3.5-5.1); TOTAL PROTEIN 8.7 gm/dL (6.4-8.2)
[2024-07-24 19:29] LABS: CREATININE SERUM 7.76 mg/dL (0.70-1.30)
== END 2024-07-24 22:48 | disposition home or self-care (01) ==
LOC: ER 16:15
PROVIDERS: General Practice
DX: M54.89 Other dorsalgia (principal); M51.369 Other intervertebral disc degeneration, lumbar region without mention of lumbar back pain or lower extremity pain; E11.9 Type 2 diabetes mellitus without complications; Z79.4 Long term (current) use of insulin; I10 Essential (primary) hypertension

== ENCOUNTER 2024-07-27 16:42 | Inpatient (IN) | payer OTHER ==
[~2024-07-27] VITALS: Ht 170.2 cm; Wt 63.5 kg
[2024-07-27] MEDS ORDERED: 0.9 % SODIUM CHLORIDE 1,000 ML IV SCH (18:45)
[2024-07-27] MEDS ORDERED: INSULIN REGULAR, HUMAN 1,000 UNIT/10 ML UNITS IV ONE (18:45)
[2024-07-27 19:06] LABS: BASO % 0.3 % (0.1-1.2); EOS # 0.01 (0.04-0.54); EOS % 0.1 % (0.7-7.0); LYMPH # 1.11 (1.18-3.74); LYMPH % 8.6 % (19.3-53.1); MEAN CORPUSCULAR HEMOGLOBIN 27.2 pg (25.6-32.2); MONO # 0.94 (0.24-0.82); MONO % 7.2 % (4.7-12.5); NEUT # 10.81 (1.56-6.13); NEUT % 83.3 % (34.0-71.1); PLATELET COUNT 313 K/uL (163-369); RED BLOOD COUNT 3.05 M/uL (4.63-6.08); RED CELL DISTRIBUTION WIDTH 15.5 % (11.6-14.4)
[2024-07-27 19:09] LABS: HEMATOCRIT 24.1 % (40.1-51.0); HEMOGLOBIN 8.3 g/dL (13.7-17.5)
[2024-07-27] MEDS ORDERED: VANCOMYCIN HCL 1,000 MG VIAL ONE (19:09)
[2024-07-27] MEDS ORDERED: GENTAMICIN SULFATE 40 MG/ML VIAL ONE (19:09)
[2024-07-27] MEDS ORDERED: GENTAMICIN SULFATE 40 MG/ML VIAL IV ONE (19:15)
[2024-07-27] MEDS ORDERED: VANCOMYCIN HCL 1,000 MG VIAL IV ONE (19:15)
[2024-07-27 19:33] LABS: ALBUMIN 2.1 gm/dL (3.4-5.0); BILIRUBIN TOTAL 0.65 mg/dL (0.3-1.2); BILIRUBIN,CONJUGATED 0.17 mg/dL (0.0-0.2); BILIRUBIN,UNCONJUGATED 0.48 mg/dL (0.0-0.6); CALCIUM 9.1 mg/dL (8.5-10.1); GFR 6.7; GLOBULINA 6.1 G/DL (2.4-3.5); POTASSIUM 5.67 mEq/L (3.5-5.1); TOTAL PROTEIN 8.2 gm/dL (6.4-8.2)
[2024-07-27 19:37] LABS: CREATININE SERUM 8.2 mg/dL (0.70-1.30)
[2024-07-27] MEDS ORDERED: DEXTROSE 50 % IN WATER 0.5 G/ML DISP.SYRIN IV PRN (22:30)
[2024-07-27] MEDS ORDERED: ACETAMINOPHEN 500 MG GEL..CAP PO PRN (22:30)
[2024-07-27] MEDS ORDERED: INSULIN LISPRO 1,000 UNIT/10 ML UNITS SUBCUTANEO PRN (22:30)
[2024-07-28] MEDS ORDERED: PIPERACILLIN/TAZOBACTAM SODIUM 2.25 GM VIAL IV SCH (01:00)
[2024-07-28 01:48] LABS: COVID-19 AG NEGATIVE (NEGATIVE)
[2024-07-28 03:46] VITALS: BP 193/86; O2SAT 96
[2024-07-28 08:58] VITALS: BP 206/89
[2024-07-28] MEDS ORDERED: DOXAZOSIN MESYLATE 4 MG TABLET PO SCH (09:00)
[2024-07-28] MEDS ORDERED: NIFEDIPINE 90 MG TAB.SA.OSM PO SCH ×2 (09:00→21:00)
[2024-07-28] MEDS ORDERED: CARVEDILOL 12.5 MG TABLET PO SCH (09:00)
[2024-07-28] MEDS ORDERED: PANTOPRAZOLE SODIUM 40 MG/VIAL VIAL IV SCH (09:00)
[2024-07-28] MEDS ORDERED: LOSARTAN POTASSIUM 100 MG TABLET PO SCH (09:00)
[2024-07-28] MEDS ORDERED: INSULIN LISPRO 1,000 UNIT/10 ML UNITS SUBCUTANEO STA (09:21)
[2024-07-28] MEDS ORDERED: INSULIN GLARGINE,HUM.REC.ANLOG 1,000 UNITS/10 ML UNITS SUBCUTANEO STA (09:22)
[2024-07-28 11:41] VITALS: BP 182/87
[2024-07-28] MEDS ORDERED: INSULIN LISPRO 1,000 UNIT/10 ML UNITS SUBCUTANEO SCH (12:00)
[2024-07-28] MEDS ORDERED: hydrALAZINE HCL 25 MG TABLET PO SCH (13:00)
[2024-07-28 13:58] LABS: PH,URINE 7.5 (5.0-8.0); URINE APPEARANCE Clear; URINE BILIRRUBIN Negative (NEGATIVE); URINE BLOOD Small; URINE COLOR Yellow; URINE KETONE 15 (NEGATIVE); URINE LEUKOCYTE Negative; URINE NITRATE Negative; URINE UROBILINOGEN 0.2 E.U./dl
[2024-07-28 14:02] LABS: URINE BACTERIA 31.8 uL (0.0-1933); URINE EPITHELIAL CELLS 3.7 uL (0.0-38.8); URINE WBC 46.1 uL (0.0-23.2)
[2024-07-28 14:19] LABS: URINE CAST 0.73 uL (0.0-1.40); URINE GLUCOSE >=1000 MG/DL (NEGATIVE); URINE PROTEIN 300 (NEGATIVE)
[2024-07-28 16:00] VITALS: BP 154/84; O2SAT 95
[2024-07-28] MEDS ORDERED: HEPARIN SODIUM,PORCINE 1,000 UNITS/ML VIAL SPEPROC NR (16:30)
[2024-07-28] MEDS ORDERED: HEPARIN SODIUM,PORCINE 1,000 UNITS/ML VIAL IV SCH ×2 (16:30→17:00)
[2024-07-28] MEDS ORDERED: EPOETIN ALFA-EPBX 10,000 UNIT/ML VIAL (Retacrit) SUBCUTANEO SCH (20:45)
[2024-07-28] MEDS ORDERED: INSULIN GLARGINE,HUM.REC.ANLOG 1,000 UNITS/10 ML UNITS SUBCUTANEO SCH (21:00)
[2024-07-28] MEDS ORDERED: GABAPENTIN 400 MG CAPSULE PO SCH (21:00)
[2024-07-29 01:58] VITALS: BP 153/79; O2SAT 92
[2024-07-29 08:46] VITALS: BP 120/58; O2SAT 93
[2024-07-29] MEDS ORDERED: MUPIROCIN 22 GM OINT..GM TUBE NASAL SCH (09:00)
[2024-07-29] MEDS ORDERED: CHLORHEXIDINE GLUCONATE 120 ML BOTTLE TOP SCH (09:00)
[2024-07-29] MEDS ORDERED: LACTOBACILLUS ACIDOPHILUS 1 CAP CAP PO SCH (09:00)
[2024-07-29] MEDS ORDERED: VANCOMYCIN HCL 500 MG VIAL IV SCH (09:00)
[2024-07-29] MEDS ORDERED: INSULIN GLARGINE,HUM.REC.ANLOG 1,000 UNITS/10 ML UNITS SUBCUTANEO SCH (09:00)
[2024-07-29] MEDS ORDERED: VANCOMYCIN HCL 1,000 MG VIAL IV STA (09:04)
[2024-07-29] MEDS ORDERED: KETOROLAC TROMETHAMINE 30 MG VIAL IV NR (12:20)
[2024-07-29] MEDS ORDERED: DOCUSATE SODIUM 100MG CAP PO SCH (17:00)
[2024-07-29 17:09] LABS: BASO % 0.2 % (0.1-1.2); EOS % 0.8 % (0.7-7.0); LYMPH # 1.33 (1.18-3.74); LYMPH % 10.6 % (19.3-53.1); MEAN CORPUSCULAR HEMOGLOBIN 27.6 pg (25.6-32.2); MONO # 0.66 (0.24-0.82); MONO % 5.2 % (4.7-12.5); NEUT # 10.41 (1.56-6.13); NEUT % 82.7 % (34.0-71.1); PLATELET COUNT 332 K/uL (163-369); RED BLOOD COUNT 2.83 M/uL (4.63-6.08); RED CELL DISTRIBUTION WIDTH 15.4 % (11.6-14.4)
[2024-07-29 17:23] LABS: HEMATOCRIT 22.5 % (40.1-51.0); HEMOGLOBIN 7.8 g/dL (13.7-17.5)
[2024-07-29 17:30] LABS: INR 1.13; PARTIAL THROMBOPLASTIN TIME 28.8 SECONDS (22.0-34.0); PROTHROMBIN TIME 12.2 SECONDS (9.0-11.5)
[2024-07-29 17:42] LABS: CALCIUM 8.8 mg/dL (8.5-10.1)
[2024-07-29 17:46] VITALS: BP 105/61; O2SAT 98
[2024-07-29 17:54] LABS: CREATININE SERUM 10.5 mg/dL (0.70-1.30); GFR 5.04; POTASSIUM 5.99 mEq/L (3.5-5.1)
[2024-07-29] MEDS ORDERED: NIFEDIPINE 30 MG TAB.SA.OSM PO ONE (20:24)
[2024-07-29] MEDS ORDERED: NIFEDIPINE 60 MG TAB.SA.OSM PO ONE (20:24)
[2024-07-29] MEDS ORDERED: VANCOMYCIN HCL 500 MG VIAL ONE (20:27)
[2024-07-29] MEDS ORDERED: KETOROLAC TROMETHAMINE 30 MG VIAL IV SCH (21:00)
[2024-07-30 02:08] VITALS: BP 147/74; O2SAT 92
[2024-07-30 08:54] VITALS: BP 115/68; O2SAT 98
[2024-07-30] MEDS ORDERED: NIFEDIPINE 90 MG TAB.SA.OSM PO SCH (09:00)
[2024-07-30 16:16] VITALS: BP 149/76; O2SAT 100
[2024-07-30] MEDS ORDERED: ACETAMINOPHEN 500 MG GEL..CAP PO PRN (23:15)
[2024-07-31] MEDS ORDERED: KETOROLAC TROMETHAMINE 30 MG VIAL IV SCH (01:00)
[2024-07-31 02:16] VITALS: BP 172/82; O2SAT 95
[2024-07-31 08:29] VITALS: BP 149/90; O2SAT 96
[2024-07-31] MEDS ORDERED: VANCOMYCIN HCL 500 MG VIAL IV SCH (09:00)
[2024-07-31] MEDS ORDERED: OxyCODONE HCL 5 MG TABLET (ROXICODONE) PO PRN (10:30)
[2024-07-31] MEDS ORDERED: ONDANSETRON HCL 4 MG in 0.9 % SODIUM CHLORIDE 50 ML IV PRN (16:00)
[2024-07-31] MEDS ORDERED: HEPARIN SODIUM,PORCINE 5,000 UNITS/ML VIAL ONE (16:51)
[2024-07-31 17:52] VITALS: BP 235/129; O2SAT 98
[2024-07-31 18:30] VITALS: BP 159/73
[2024-07-31 20:20] VITALS: BP 140/79; O2SAT 96
[2024-07-31 22:01] LABS: BASO % 0.4 % (0.1-1.2); EOS # 0.09 (0.04-0.54); EOS % 0.7 % (0.7-7.0); HEMATOCRIT 33.7 % (40.1-51.0); HEMOGLOBIN 11.7 g/dL (13.7-17.5); LYMPH # 0.79 (1.18-3.74); LYMPH % 5.7 % (19.3-53.1); MEAN CORPUSCULAR HEMOGLOBIN 27.5 pg (25.6-32.2); MONO # 0.72 (0.24-0.82); MONO % 5.2 % (4.7-12.5); NEUT # 11.87 (1.56-6.13); PLATELET COUNT 390 K/uL (163-369); RED BLOOD COUNT 4.26 M/uL (4.63-6.08); RED CELL DISTRIBUTION WIDTH 14.7 % (11.6-14.4)
[2024-07-31] MEDS ORDERED: HEPARIN SODIUM,PORCINE 5,000 UNITS/ML VIAL IV PRN (23:45)
[2024-08-01 02:04] VITALS: BP 132/69; O2SAT 94
[2024-08-01] MEDS ORDERED: PANTOPRAZOLE SODIUM 40 MG TABLET.DR PO SCH (09:00)
[2024-08-01 09:38] VITALS: BP 157/77; O2SAT 95
[2024-08-01] MEDS ORDERED: OxyCODONE HCL 5 MG TABLET (ROXICODONE) PO PRN (11:06)
[2024-08-01 17:37] VITALS: BP 181/85
[2024-08-01] MEDS ORDERED: MORPHINE SULFATE 4 MG/ML VIAL IV STA (19:30)
[2024-08-01] MEDS ORDERED: MORPHINE SULFATE 2 MG/ML CARTRIDGE IV PRN (19:30)
[2024-08-01] MEDS ORDERED: DIPHENHYDRAMINE HCL 50 MG/ML VIAL 1ML IV PRN (19:45)
[2024-08-01] MEDS ORDERED: NALOXONE HCL 0.4 MG/ML AMPUL IV PRN (19:45)
[2024-08-02 02:32] VITALS: BP 200/99; O2SAT 97
[2024-08-02] MEDS ORDERED: ENALAPRILAT DIHYDRATE 1.25 MG/ML VIAL IV ONE (03:47)
[2024-08-02] MEDS ORDERED: ENALAPRILAT DIHYDRATE 2.5 MG/2 ML VIAL IV PRN (04:00)
[2024-08-02 08:55] LABS: ALBUMIN 2.4 gm/dL (3.4-5.0); CALCIUM 9.3 mg/dL (8.5-10.1); GFR 6.82; PHOSPHOROUS 5.3 mg/dL (2.5-4.9); POTASSIUM 5.13 mEq/L (3.5-5.1)
[2024-08-02] MEDS ORDERED: INSULIN GLARGINE,HUM.REC.ANLOG 1,000 UNITS/10 ML UNITS SUBCUTANEO SCH (09:00)
[2024-08-02] MEDS ORDERED: ENALAPRILAT DIHYDRATE 1.25 MG/ML VIAL IV PRN (09:15)
[2024-08-02] MEDS ORDERED: GABAPENTIN 100 MG CAPSULE PO NR (09:15)
[2024-08-02 09:26] VITALS: BP 198/86; O2SAT 96
[2024-08-02 10:20] LABS: CREATININE SERUM 8.07 mg/dL (0.70-1.30)
[2024-08-02] MEDS ORDERED: GABAPENTIN 100 MG CAPSULE PO SCH (17:00)
[2024-08-02 18:23] VITALS: BP 182/83
[2024-08-02] MEDS ORDERED: SENNA/DOCUSATE SODIUM 1 TAB TABLET PO SCH (21:00)
[2024-08-03 00:50] VITALS: BP 179/88; O2SAT 97
[2024-08-03] MEDS ORDERED: GABAPENTIN 100 MG CAPSULE PO SCH (06:00)
[2024-08-03 09:20] VITALS: BP 198/100; O2SAT 97
[2024-08-03] MEDS ORDERED: hydrALAZINE HCL 50 MG TABLET PO SCH (13:00)
[2024-08-03 13:17] VITALS: BP 150/60
[2024-08-03 18:39] VITALS: BP 100/65
[2024-08-04 01:33] VITALS: BP 161/82; O2SAT 94
[2024-08-04 09:32] VITALS: BP 143/77; O2SAT 95
[2024-08-04] MEDS ORDERED: LIDOCAINE HCL 1%/EPINEPHRINE 20ML VIAL IJ ONE (17:17)
[2024-08-04] MEDS ORDERED: IOVERSOL 320 MG/ML - 50 ML VIAL IV ONE (17:17)
[2024-08-04] MEDS ORDERED: HEPARIN SODIUM,PORCINE/PF 100 UNIT/ML SYRINGE IV ONE (17:17)
[2024-08-04] MEDS ORDERED: BUPIVACAINE HCL/Mpf 0.5% 10ML VIAL ONE (17:17)
[2024-08-04] MEDS ORDERED: INSULIN LISPRO 1,000 UNIT/10 ML UNITS SUBCUTANEO ONE (19:52)
[2024-08-04 20:37] VITALS: BP 129/70; O2SAT 96
[2024-08-05 02:58] VITALS: BP 131/77; O2SAT 95
[2024-08-05 08:13] VITALS: BP 136/67
[2024-08-05] MEDS ORDERED: INSULIN LISPRO 1,000 UNIT/10 ML UNITS SUBCUTANEO SCH (17:00)
[2024-08-05 17:06] VITALS: BP 139/69; O2SAT 97
[2024-08-06 02:26] VITALS: BP 160/80; O2SAT 96
[2024-08-06 08:43] VITALS: BP 124/68
[2024-08-06] MEDS ORDERED: INSULIN GLARGINE,HUM.REC.ANLOG 1,000 UNITS/10 ML UNITS SUBCUTANEO SCH (09:00)
[2024-08-06 17:57] VITALS: BP 152/74; O2SAT 98
[2024-08-07 00:58] VITALS: BP 150/83; O2SAT 95
[2024-08-07 06:55] LABS: BASO % 0.6 % (0.1-1.2); EOS # 0.25 (0.04-0.54); ERYTHROCYTE SEDIMENTATION RATE 115 mm/hr (0-20); HEMATOCRIT 31.1 % (40.1-51.0); HEMOGLOBIN 10.5 g/dL (13.7-17.5); LYMPH # 2.65 (1.18-3.74); LYMPH % 20.8 % (19.3-53.1); MEAN CORPUSCULAR HEMOGLOBIN 27.3 pg (25.6-32.2); MONO # 1.23 (0.24-0.82); MONO % 9.7 % (4.7-12.5); NEUT # 8.39 (1.56-6.13); NEUT % 65.9 % (34.0-71.1); PLATELET COUNT 419 K/uL (163-369); RED BLOOD COUNT 3.84 M/uL (4.63-6.08); RED CELL DISTRIBUTION WIDTH 16.1 % (11.6-14.4)
[2024-08-07 07:25] LABS: CALCIUM 8.9 mg/dL (8.5-10.1); GFR 7.41; POTASSIUM 5.18 mEq/L (3.5-5.1)
[2024-08-07 07:46] LABS: CREATININE SERUM 7.51 mg/dL (0.70-1.30)
[2024-08-07 09:50] VITALS: BP 180/80
[2024-08-07 18:42] VITALS: BP 184/89; O2SAT 98
[2024-08-08 01:20] VITALS: BP 142/76; O2SAT 96
[2024-08-08] MEDS ORDERED: INSULIN GLARGINE,HUM.REC.ANLOG 1,000 UNITS/10 ML UNITS SUBCUTANEO SCH (09:00)
[2024-08-08 10:10] VITALS: BP 197/85; O2SAT 96
[2024-08-08] MEDS ORDERED: hydrALAZINE HCL 50 MG TABLET PO SCH (13:00)
[2024-08-09 02:00] VITALS: BP 150/68; O2SAT 95
[2024-08-09 09:51] VITALS: BP 169/80; O2SAT 96
[2024-08-09 16:00] VITALS: BP 109/59; O2SAT 96
[2024-08-10 01:54] VITALS: BP 124/62; O2SAT 96
[2024-08-10 08:52] VITALS: BP 137/73; O2SAT 99
[2024-08-10] MEDS ORDERED: MORPHINE SULFATE 2 MG/ML CARTRIDGE IV STA (09:44)
[2024-08-10] MEDS ORDERED: MORPHINE SULFATE 2 MG/ML CARTRIDGE IV PRN (09:45)
[2024-08-10 13:59] VITALS: BP 128/65
[2024-08-10 16:05] VITALS: BP 96/65
[2024-08-10] MEDS ORDERED: VANCOMYCIN HCL 500 MG VIAL IV ONE (20:30)
[2024-08-11 01:20] VITALS: BP 138/74; O2SAT 99
[2024-08-11 08:54] VITALS: BP 159/83; O2SAT 96
[2024-08-11] MEDS ORDERED: INSULIN GLARGINE,HUM.REC.ANLOG 1,000 UNITS/10 ML UNITS SUBCUTANEO SCH (09:00)
[2024-08-11] MEDS ORDERED: VANCOMYCIN HCL 500 MG VIAL IV SCH (09:00)
[2024-08-11 16:41] VITALS: BP 91/51; O2SAT 97
[2024-08-12 01:56] VITALS: BP 121/70; O2SAT 96
[2024-08-12 09:06] VITALS: BP 166/70; O2SAT 95
[2024-08-12 17:39] VITALS: BP 102/63; O2SAT 97
== END 2024-08-12 22:43 | disposition home or self-care (01) | DRG 871 ==
LOC: ER 16:42 → MEDJ 22:08 → MEDI 22:08 → MEDJ 07-28 17:18 → MEDI 08-08 15:01
PROVIDERS: General Practice; Student in an Organized Health Care Education/Training Program; ADMIT Internal Medicine; ATTEND Internal Medicine
PROC: 8E0ZXY6 Isolation (ICD-10-PCS; 2024-07-29)
PROC: 5A1D70Z Performance of Urinary Filtration, Intermittent, Less than 6 Hours Per Day (ICD-10-PCS; 2024-07-29)
PROC: 5A1D70Z Performance of Urinary Filtration, Intermittent, Less than 6 Hours Per Day (ICD-10-PCS; 2024-07-31)
PROC: 30233N1 Transfusion of Nonautologous Red Blood Cells into Peripheral Vein, Percutaneous Approach (ICD-10-PCS; 2024-07-31)
PROC: 5A1D70Z Performance of Urinary Filtration, Intermittent, Less than 6 Hours Per Day (ICD-10-PCS; 2024-08-03)
PROC: CP1Z1ZZ Planar Nuclear Medicine Imaging of Musculoskeletal System, All using Technetium 99m (Tc-99m) (ICD-10-PCS; 2024-08-03)
PROC: 02PAX3Z Removal of Infusion Device from Heart, External Approach (ICD-10-PCS; 2024-08-04)
PROC: 05HM33Z Insertion of Infusion Device into Right Internal Jugular Vein, Percutaneous Approach (ICD-10-PCS; 2024-08-04)
PROC: B513YZA Fluoroscopy of Right Jugular Veins using Other Contrast, Guidance (ICD-10-PCS; 2024-08-04)
PROC: 5A1D70Z Performance of Urinary Filtration, Intermittent, Less than 6 Hours Per Day (ICD-10-PCS; principal; 2024-08-05)
PROC: BR27YZZ Computerized Tomography (CT Scan) of Thoracic Spine using Other Contrast (ICD-10-PCS; 2024-08-07)
PROC: 5A1D70Z Performance of Urinary Filtration, Intermittent, Less than 6 Hours Per Day (ICD-10-PCS; 2024-08-08)
PROC: B246ZZZ Ultrasonography of Right and Left Heart (ICD-10-PCS; 2024-08-09)
PROC: 5A1D70Z Performance of Urinary Filtration, Intermittent, Less than 6 Hours Per Day (ICD-10-PCS; 2024-08-10)
PROC: 5A1D70Z Performance of Urinary Filtration, Intermittent, Less than 6 Hours Per Day (ICD-10-PCS; 2024-08-12)
DX: A41.02 Sepsis due to Methicillin resistant Staphylococcus aureus (principal); N18.6 End stage renal disease; T80.211A Bloodstream infection due to central venous catheter, initial encounter; N17.9 Acute kidney failure, unspecified; I12.0 Hypertensive chronic kidney disease with stage 5 chronic kidney disease or end stage renal disease; M46.24 Osteomyelitis of vertebra, thoracic region; E87.70 Fluid overload, unspecified; D64.89 Other specified anemias; E11.65 Type 2 diabetes mellitus with hyperglycemia; E11.22 Type 2 diabetes mellitus with diabetic chronic kidney disease; M54.59 Other low back pain; K59.00 Constipation, unspecified; D63.1 Anemia in chronic kidney disease; N40.0 Benign prostatic hyperplasia without lower urinary tract symptoms; I70.0 Atherosclerosis of aorta; R41.82 Altered mental status, unspecified; Z99.2 Dependence on renal dialysis; Z79.4 Long term (current) use of insulin; Z79.84 Long term (current) use of oral hypoglycemic drugs; F43.20 Adjustment disorder, unspecified

== ENCOUNTER 2024-08-26 09:17 | Emergency (ER) | payer OTHER ==
[~2024-08-26] VITALS: Ht 152.4 cm; Wt 63.5 kg
[2024-08-26 09:53] VITALS: BP 180/100; O2SAT 98
[2024-08-26 10:54] LABS: BASO % 0.9 % (0.1-1.2); EOS # 0.05 (0.04-0.54); EOS % 1.1 % (0.7-7.0); HEMATOCRIT 35.7 % (40.1-51.0); LYMPH # 1.08 (1.18-3.74); LYMPH % 23.1 % (19.3-53.1); MEAN CORPUSCULAR HEMOGLOBIN 27.2 pg (25.6-32.2); MONO % 10.7 % (4.7-12.5); NEUT # 2.99 (1.56-6.13); PLATELET COUNT 218 K/uL (163-369); RED BLOOD COUNT 4.41 M/uL (4.63-6.08); RED CELL DISTRIBUTION WIDTH 15.7 % (11.6-14.4)
[2024-08-26 11:13] LABS: ALBUMIN 2.6 gm/dL (3.4-5.0); BILIRUBIN TOTAL 1.27 mg/dL (0.3-1.2); CALCIUM 9.1 mg/dL (8.5-10.1); GFR 10.58; GLOBULINA 4.5 G/DL (2.4-3.5); POTASSIUM 4.13 mEq/L (3.5-5.1); TOTAL PROTEIN 7.1 gm/dL (6.4-8.2)
[2024-08-26 11:21] LABS: CREATININE SERUM 5.52 mg/dL (0.70-1.30)
[2024-08-26] MEDS ORDERED: TRAMADOL HCL 50 MG TABLET PO ONE (12:30)
== END 2024-08-26 14:42 | disposition home or self-care (01) ==
LOC: ER 09:17
PROVIDERS: General Practice
DX: E11.649 Type 2 diabetes mellitus with hypoglycemia without coma (principal); Z79.4 Long term (current) use of insulin; I10 Essential (primary) hypertension

== ENCOUNTER 2024-08-27 07:30 | Inpatient (IN) | payer OTHER ==
[~2024-08-27] VITALS: Ht 167.6 cm; Wt 63.5 kg
--- NOTE | 2024-08-27 07:41 | NUR ---
PTE ALERTA Y ORIENTADO X3 REFIERE TENER AZUCAR BAJA DESDE EL JUD DE SCOOTER, PTE DE DRA CLEMONS INFECTOLOGOGA, DR. NEIL ANDERSEN. SE RAYNE SV MAS SE UBICA EN CAMA 06 CON ASHLEY ELEVADAS.
[2024-08-27] MEDS ORDERED: DEXTROSE 5 % IN WATER 1,000 ML IV SCH (08:30)
--- NOTE | 2024-08-27 08:34 | NUR ---
PACIENTE EVALUADO POR DR. CINTRON QUIEN ORDENA TX MEDICO; RN FAIR EDUCA ACERCA DEL MISMO Y REFIERE ENTENDER. SE CANALIZA Y COLECTAN MUESTRAS DE LABORATORIO MEDIANTE MEDIDAS ASEPTICAS.
[2024-08-27 09:16] LABS: BASO % 0.5 % (0.1-1.2); EOS # 0.07 (0.04-0.54); EOS % 1.1 % (0.7-7.0); LYMPH # 1.22 (1.18-3.74); LYMPH % 19.1 % (19.3-53.1); MEAN PLATELET VOLUME 11.50 fl (9.4-12.4); MONO # 0.70 (0.24-0.82); MONO % 10.9 % (4.7-12.5); NEUT # 4.37 (1.56-6.13); NEUT % 68.2 % (34.0-71.1); RED CELL DISTRIBUTION WIDTH 15.7 % (11.6-14.4)
[2024-08-27 09:19] LABS: ALT/SGPT 22.0 U/L (12-78); AST/SGOT 16.0 U/L (15-37); BILIRUBIN TOTAL 0.89 mg/dL (0.3-1.2); BUN CREA RATIO 5.0 (7.0-25.0); CREATININE SERUM 3.61 mg/dL (0.70-1.30); GFR 17.27; GLOBULINA 4.8 G/DL (2.4-3.5); GLUCOSE FASTING 57.0 mg/dL (65-100); OSMOLALITY SERUM 277.0 MOSM/KG (275-295)
[2024-08-27] MEDS ORDERED: DEXTROSE 5 %-0.45 % SOD CHLORD 1,000 ML IV SCH (17:45)
[2024-08-27] MEDS ORDERED: PIPERACILLIN/TAZOBACTAM SODIUM 2.25 GM in DEXTROSE 5 % IN WATER 50 ML IV SCH (17:54)
[2024-08-27] MEDS ORDERED: GABAPENTIN 400 MG CAPSULE PO SCH (17:59)
[2024-08-27] MEDS ORDERED: MORPHINE SULFATE 4 MG/ML CARTRIDGE IV ONE (18:00)
[2024-08-27] MEDS ORDERED: ACETAMINOPHEN 500 MG GEL..CAP PO PRN (18:00)
[2024-08-27] MEDS ORDERED: VANCOMYCIN HCL 500 MG VIAL IU SCH (18:00)
[2024-08-27] MEDS ORDERED: ONDANSETRON HCL 4 MG in 0.9 % SODIUM CHLORIDE 50 ML IV PRN (18:00)
[2024-08-27] MEDS ORDERED: NIFEDIPINE 90 MG TAB.SA.OSM PO SCH (18:01)
[2024-08-27] MEDS ORDERED: DEXTROSE 50 % IN WATER 0.5 G/ML DISP.SYRIN IV PRN (18:30)
[2024-08-27] MEDS ORDERED: INSULIN LISPRO 1,000 UNIT/10 ML UNITS SUBCUTANEO PRN (18:30)
[2024-08-27] MEDS ORDERED: VANCOMYCIN HCL 1,000 MG VIAL ONE (19:08)
[2024-08-27] MEDS ORDERED: VANCOMYCIN HCL 500 MG VIAL IV SCH (19:30)
[2024-08-27] MEDS ORDERED: LABETALOL HCL 100 MG/20 ML ML ONE (19:39)
[2024-08-27 19:51] VITALS: BP 180/100; O2SAT 95
[2024-08-27 19:51] LABS: INR 1.06
[2024-08-27 20:24] LABS: URINE APPEARANCE Clear; URINE BACTERIA 23.2 uL (0.0-1933); URINE BILIRRUBIN Negative (NEGATIVE); URINE BLOOD Negative; URINE COLOR Yellow; URINE KETONE Negative (NEGATIVE); URINE LEUKOCYTE Negative; URINE NITRATE Negative; URINE RBC 4.7 uL (0.0-20.8); URINE UROBILINOGEN 0.2 E.U./dl; URINE WBC 3.0 uL (0.0-23.2)
[2024-08-27 20:30] LABS: URINE CAST 0.14 uL (0.0-1.40); URINE EPITHELIAL CELLS 1.1 uL (0.0-38.8); URINE GLUCOSE 250 MG/DL (NEGATIVE); URINE PROTEIN 300 (NEGATIVE)
[2024-08-27] MEDS ORDERED: CARVEDILOL 12.5 MG TABLET PO SCH (21:00)
[2024-08-27] MEDS ORDERED: cloNIDine 0.2 MG/24 H PATCH.TDWK TD SCH (21:57)
[2024-08-27] MEDS ORDERED: HEPARIN SODIUM,PORCINE 1,000 UNITS/ML VIAL SPEPROC ONE (22:00)
[2024-08-27] MEDS ORDERED: HEPARIN SODIUM,PORCINE 1,000 UNITS/ML VIAL IV SCH (22:00)
[2024-08-27 22:09] VITALS: BP 180/90; O2SAT 96
[2024-08-28 03:00] VITALS: BP 106/62; O2SAT 94
[2024-08-28] MEDS ORDERED: DOXAZOSIN MESYLATE 4 MG TABLET PO SCH (09:00)
[2024-08-28 09:27] VITALS: BP 135/72
[2024-08-28] MEDS ORDERED: MORPHINE SULFATE 4 MG/ML CARTRIDGE IV PRN (09:30)
[2024-08-28] MEDS ORDERED: GUAIFENESIN 200 MG/10 ML BLIST.PACK PO SCH (09:56)
[2024-08-28 13:58] LABS: COVID-19 AG NEGATIVE (NEGATIVE)
[2024-08-28] MEDS ORDERED: CHLORHEXIDINE GLUCONATE 120 ML BOTTLE TOP SCH (14:20)
[2024-08-28 16:48] VITALS: BP 101/58; O2SAT 96
[2024-08-28] MEDS ORDERED: MUPIROCIN 22 GM OINT..GM TUBE NASAL SCH (17:00)
[2024-08-28] MEDS ORDERED: LACTOBACILLUS ACIDOPHILUS 1 CAP CAP PO SCH (17:00)
[2024-08-28] MEDS ORDERED: PIPERACILLIN/TAZOBACTAM SODIUM 2.25 GM in DEXTROSE 5 % IN WATER 50 ML IV SCH (21:00)
[2024-08-28] MEDS ORDERED: VANCOMYCIN HCL 500 MG VIAL IV SCH (21:00)
[2024-08-29 02:37] VITALS: BP 109/65; O2SAT 95
[2024-08-29 08:56] VITALS: BP 120/60; O2SAT 92
[2024-08-29] MEDS ORDERED: HEPARIN SODIUM,PORCINE 5,000 UNITS/ML VIAL IV PRN (17:15)
[2024-08-29 18:19] VITALS: BP 141/83; O2SAT 96
[2024-08-29] MEDS ORDERED: INSULIN LISPRO 1,000 UNIT/10 ML UNITS SUBCUTANEO PRN (21:45)
[2024-08-30 01:51] VITALS: BP 156/73; O2SAT 92
[2024-08-30 08:16] LABS: BASO % 0.6 % (0.1-1.2); EOS # 0.10 (0.04-0.54); EOS % 1.5 % (0.7-7.0); LYMPH # 1.36 (1.18-3.74); LYMPH % 20.5 % (19.3-53.1); MEAN PLATELET VOLUME 11.50 fl (9.4-12.4); MONO # 0.43 (0.24-0.82); MONO % 6.5 % (4.7-12.5); NEUT # 4.70 (1.56-6.13); NEUT % 70.7 % (34.0-71.1); RED CELL DISTRIBUTION WIDTH 15.3 % (11.6-14.4)
[2024-08-30 08:41] LABS: BUN CREA RATIO 4.0 (7.0-25.0); CREATININE SERUM 3.8 mg/dL (0.70-1.30); GFR 16.28; GLUCOSE FASTING 143.0 mg/dL (65-100); OSMOLALITY SERUM 272.0 MOSM/KG (275-295)
[2024-08-30 09:33] VITALS: BP 126/69; O2SAT 92
[2024-08-30] MEDS ORDERED: MAGNESIUM HYDROXIDE 30 ML BLIST.PACK PO ONE (14:30)
[2024-08-30] MEDS ORDERED: LACTULOSE 20 G/30 ML BLIST.PACK PO ONE (14:30)
[2024-08-30] MEDS ORDERED: MINERAL OIL 30 ML BLIST.PACK PO ONE (14:30)
[2024-08-30] MEDS ORDERED: MORPHINE SULFATE 4 MG/ML CARTRIDGE IV PRN (14:30)
[2024-08-30 17:59] VITALS: BP 155/79; O2SAT 95
[2024-08-31 01:49] VITALS: BP 135/69; O2SAT 97
[2024-08-31 08:11] VITALS: BP 132/77
[2024-08-31] MEDS ORDERED: LACTOBACILLUS ACIDOPHILUS 1 CAP CAP PO SCH (13:00)
[2024-08-31] MEDS ORDERED: HEPARIN SODIUM,PORCINE 1,000 UNITS/ML VIAL IV SCH (14:30)
[2024-08-31] MEDS ORDERED: HEPARIN SODIUM,PORCINE 5,000 UNITS/ML VIAL IV PRN (14:45)
[2024-08-31 17:48] LABS: BASO % 1.3 % (0.1-1.2); EOS # 0.12 (0.04-0.54); EOS % 3.2 % (0.7-7.0); LYMPH # 1.27 (1.18-3.74); LYMPH % 33.7 % (19.3-53.1); MEAN PLATELET VOLUME 11.50 fl (9.4-12.4); MONO # 0.20 (0.24-0.82); MONO % 5.3 % (4.7-12.5); NEUT # 2.08 (1.56-6.13); NEUT % 55.2 % (34.0-71.1); RED CELL DISTRIBUTION WIDTH 15.1 % (11.6-14.4)
[2024-08-31 18:54] LABS: BUN CREA RATIO 4.0 (7.0-25.0); CREATININE SERUM 1.94 mg/dL (0.70-1.30); GFR 35.36; GLUCOSE FASTING 158.0 mg/dL (65-100); OSMOLALITY SERUM 272.0 MOSM/KG (275-295)
[2024-08-31 19:16] VITALS: BP 189/92; O2SAT 95
[2024-08-31] MEDS ORDERED: NAPH,MB-DB/K PH,MBDB 1 PKT PACKET PO ONE (20:00)
[2024-08-31] MEDS ORDERED: AMINO ACIDS/PROTEIN HYDROLYS 30 ML BLIST.PACK PO SCH (21:06)
[2024-08-31 23:00] VITALS: BP 194/94; O2SAT 95
[2024-09-01 09:29] VITALS: BP 158/77
[2024-09-01] MEDS ORDERED: DEXTROSE 50 % IN WATER 0.5 G/ML VIAL IV PRN (14:00)
== END 2024-09-01 16:50 | disposition home or self-care (01) | DRG 539 ==
LOC: ER → MEDI 18:33 → MEDJ 18:33 → MEDI 20:02
PROVIDERS: Emergency Medicine; General Practice; Student in an Organized Health Care Education/Training Program; ADMIT Internal Medicine; ATTEND Internal Medicine
PROC: BW28ZZZ Computerized Tomography (CT Scan) of Head (ICD-10-PCS; 2024-08-27)
PROC: B24BZZZ Ultrasonography of Heart with Aorta (ICD-10-PCS; 2024-08-27)
PROC: 8E0ZXY6 Isolation (ICD-10-PCS; principal; 2024-08-28)
PROC: BW24ZZZ Computerized Tomography (CT Scan) of Chest and Abdomen (ICD-10-PCS; 2024-08-28)
PROC: 5A1D70Z Performance of Urinary Filtration, Intermittent, Less than 6 Hours Per Day (ICD-10-PCS; 2024-08-31)
DX: M46.24 Osteomyelitis of vertebra, thoracic region (principal); N18.6 End stage renal disease; I12.0 Hypertensive chronic kidney disease with stage 5 chronic kidney disease or end stage renal disease; R55 Syncope and collapse; E16.1 Other hypoglycemia; E11.22 Type 2 diabetes mellitus with diabetic chronic kidney disease; Z99.2 Dependence on renal dialysis; Z79.4 Long term (current) use of insulin; E78.5 Hyperlipidemia, unspecified; I25.10 Atherosclerotic heart disease of native coronary artery without angina pectoris; D63.1 Anemia in chronic kidney disease; W19.XXXA Unspecified fall, initial encounter; Y93.9 Activity, unspecified; Y92.9 Unspecified place or not applicable

== ENCOUNTER 2024-10-25 10:21 | Emergency (ER) | payer OTHER ==
[~2024-10-25] VITALS: Ht 167.6 cm; Wt 68.0 kg
[2024-10-25 12:51] LABS: ALT/SGPT 20.0 U/L (12-78); AST/SGOT 17.0 U/L (15-37); BILIRUBIN TOTAL 0.42 mg/dL (0.3-1.2); BUN CREA RATIO 5.0 (7.0-25.0); GFR 11.26; GLOBULINA 5.8 G/DL (2.4-3.5); GLUCOSE FASTING 130.0 mg/dL (65-100); OSMOLALITY SERUM 284.0 MOSM/KG (275-295)
[2024-10-25 12:53] LABS: URINE APPEARANCE Clear; URINE BILIRRUBIN Negative (NEGATIVE); URINE BLOOD Negative; URINE COLOR Yellow; URINE KETONE Negative (NEGATIVE); URINE LEUKOCYTE Trace; URINE NITRATE Negative; URINE UROBILINOGEN 0.2 E.U./dl
[2024-10-25 12:56] LABS: URINE BACTERIA 11.9 uL (0.0-1933); URINE EPITHELIAL CELLS 3.5 uL (0.0-38.8); URINE WBC 21.0 uL (0.0-23.2)
[2024-10-25 13:06] LABS: URINE CAST 1.02 uL (0.0-1.40); URINE GLUCOSE 250 MG/DL (NEGATIVE); URINE PROTEIN 300 (NEGATIVE); URINE RBC 1.9 uL (0.0-20.8)
[2024-10-25] MEDS ORDERED: NIFEDIPINE 60 MG TAB.SA.OSM PO STA (13:09)
[2024-10-25 13:53] LABS: CREATININE SERUM 5.23 mg/dL (0.70-1.30)
[2024-10-25 14:03] LABS: BASO % 0.9 % (0.1-1.2); EOS # 0.05 (0.04-0.54); EOS % 0.7 % (0.7-7.0); LYMPH # 1.30 (1.18-3.74); LYMPH % 18.5 % (19.3-53.1); MEAN PLATELET VOLUME 11.40 fl (9.4-12.4); MONO # 0.50 (0.24-0.82); MONO % 7.1 % (4.7-12.5); NEUT # 5.07 (1.56-6.13); NEUT % 72.4 % (34.0-71.1); RED CELL DISTRIBUTION WIDTH 15.9 % (11.6-14.4)
== END 2024-10-25 19:53 | disposition home or self-care (01) ==
LOC: ER 10:21
PROVIDERS: General Practice
DX: E16.2 Hypoglycemia, unspecified (principal); R03.0 Elevated blood-pressure reading, without diagnosis of hypertension; I10 Essential (primary) hypertension; E11.9 Type 2 diabetes mellitus without complications; Z79.4 Long term (current) use of insulin; Z91.148 Patient's other noncompliance with medication regimen for other reason

== ENCOUNTER 2024-11-27 16:19 | Inpatient (IN) | payer OTHER ==
[~2024-11-27] VITALS: Ht 167.6 cm; Wt 77.1 kg
--- NOTE | 2024-11-27 17:19 | NUR ---
SE RECIBE PACIENTE ALERTA Y COCNIENTE X3. EL MISMO REFIERE SENTIR DEBILIDAD Y DOLOR DE ESPALDA BAJA DESDE EL JUD DE HOY. SE PROCEDE A HECTOR S/V AL PACIENTE Y SE REALIZA EKG A ODALYS. EL MISMO ES EVALUADO POR
[2024-11-27] MEDS ORDERED: 0.9 % SODIUM CHLORIDE 1,000 ML IV ONE (18:30)
--- NOTE | 2024-11-27 19:07 | NUR ---
SE ORIENTA PTE SOBRE TX A SEGUIR, LA MISMA REFIERE ENTENDER. SE JOHN MUESTRA DE LAB, SE CANALIZA Y SE ADMINISTRA MED [place] ORDEN MEDICA
[2024-11-27 19:18] LABS: BASO % 0.3 % (0.1-1.2); EOS # 0.00 (0.04-0.54); EOS % 0.0 % (0.7-7.0); LYMPH # 0.93 (1.18-3.74); LYMPH % 6.8 % (19.3-53.1); MEAN PLATELET VOLUME 10.30 fl (9.4-12.4); MONO # 1.22 (0.24-0.82); MONO % 9.0 % (4.7-12.5); NEUT # 11.37 (1.56-6.13); NEUT % 83.4 % (34.0-71.1); RED CELL DISTRIBUTION WIDTH 16.2 % (11.6-14.4)
[2024-11-27 20:18] LABS: INR 1.14
[2024-11-27 21:08] LABS: ALT/SGPT 12 U/L (12-78); AST/SGOT 11 U/L (15-37); BILIRUBIN TOTAL 0.86 mg/dL (0.3-1.2); GLOBULINA 5.5 G/DL (2.4-3.5); GLUCOSE FASTING 169 mg/dL (65-100); OSMOLALITY SERUM 283 MOSM/KG (275-295)
[2024-11-27 21:29] LABS: BUN CREA RATIO 6 (7.0-25.0); CKMB < 1.0 NG/ML (0.5-3.6); CREATININE SERUM 6.16 mg/dL (0.70-1.30); GFR 9.32
[2024-11-27] MEDS ORDERED: VANCOMYCIN HCL 1,000 MG VIAL IV ONE (22:00)
[2024-11-27] MEDS ORDERED: VANCOMYCIN HCL 1,000 MG VIAL ONE (22:02)
[2024-11-27] MEDS ORDERED: PIPERACILLIN/TAZOBACTAM SODIUM 2.25 GM VIAL IV SCH (22:44)
[2024-11-27] MEDS ORDERED: TAMSULOSIN HCL 0.4 MG CAP PO SCH (22:44)
[2024-11-27] MEDS ORDERED: DEXTROSE 50 % IN WATER 0.5 G/ML DISP.SYRIN IV PRN (22:45)
[2024-11-27] MEDS ORDERED: INSULIN LISPRO 1,000 UNIT/10 ML UNITS SUBCUTANEO PRN (22:45)
[2024-11-27] MEDS ORDERED: ASPIRIN 81 MG TABLET.EC PO SCH (22:47)
[2024-11-27] MEDS ORDERED: MORPHINE SULFATE 2 MG/ML SYRINGE IV PRN (23:00)
[2024-11-27] MEDS ORDERED: NITROGLYCERIN IN 5 % DEXTROSE 250 ML IV SCH (23:00)
[2024-11-27] MEDS ORDERED: ONDANSETRON HCL 4 MG in 0.9 % SODIUM CHLORIDE 50 ML IV PRN (23:00)
[2024-11-28] VITALS (16 sets, daily range): BP systolic 150–191; BP diastolic 75–90; O2SAT 94–100
[2024-11-28] MEDS ORDERED: TAMSULOSIN HCL 0.4 MG CAP PO ONE (05:31)
[2024-11-28] MEDS ORDERED: NITROGLYCERIN IN 5 % DEXTROSE 50 MG/250 ML BOTTLE IV ONE (06:41)
[2024-11-28] MEDS ORDERED: NITROGLYCERIN IN 5 % DEXTROSE 250 ML IV SCH (08:15)
[2024-11-28] MEDS ORDERED: ENALAPRILAT DIHYDRATE 1.25 MG/ML VIAL IV SCH (12:00)
[2024-11-28] MEDS ORDERED: INSULIN LISPRO 1,000 UNIT/10 ML UNITS SUBCUTANEO ONE (12:09)
[2024-11-28] MEDS ORDERED: HEPARIN SODIUM,PORCINE 1,000 UNITS/ML VIAL SPEPROC ONE (12:30)
[2024-11-29] VITALS: BP 179/84; O2SAT 95
[2024-11-29 03:31] VITALS: BP 168/80; O2SAT 92
[2024-11-29 08:29] VITALS: BP 179/85
[2024-11-29] MEDS ORDERED: ONDANSETRON HCL 2 MG/ML VIAL IM PRN (11:00)
[2024-11-29 19:16] VITALS: BP 204/92
[2024-11-30] VITALS (21 sets, daily range): BP systolic 108–213; BP diastolic 73–101; O2SAT 93–94
[2024-11-30] MEDS ORDERED: CARVEDILOL 25 MG TABLET PO SCH (09:38)
[2024-11-30] MEDS ORDERED: NIFEDIPINE 60 MG TAB.SA.OSM PO SCH (09:39)
[2024-11-30] MEDS ORDERED: KETOROLAC TROMETHAMINE 30 MG VIAL IV SCH (12:13)
[2024-11-30] MEDS ORDERED: VANCOMYCIN HCL 1,000 MG VIAL IV STA (12:15)
[2024-11-30] MEDS ORDERED: CHLORHEXIDINE GLUCONATE 240 ML BOTTLE TOP SCH (12:16)
[2024-11-30] MEDS ORDERED: VANCOMYCIN HCL 1,000 MG VIAL IV SCH (12:30)
[2024-11-30] MEDS ORDERED: VANCOMYCIN HCL 5 MG/ML REDILUIDO IV STA (12:34)
[2024-11-30] MEDS ORDERED: VANCOMYCIN HCL 500 MG VIAL IV SCH (12:45)
[2024-11-30] MEDS ORDERED: CLEVIDIPINE BUTYRATE 50 MG/100 ML VIAL IV STA (13:08)
[2024-11-30] MEDS ORDERED: CLEVIDIPINE BUTYRATE 100 ML IV SCH (13:15)
[2024-11-30] MEDS ORDERED: CLEVIDIPINE BUTYRATE 50 ML IV SCH (13:15)
[2024-11-30 15:26] LABS: BASO % 0.4 % (0.1-1.2); EOS # 0.03 (0.04-0.54); EOS % 0.3 % (0.7-7.0); LYMPH # 1.24 (1.18-3.74); LYMPH % 11.9 % (19.3-53.1); MEAN PLATELET VOLUME 11.00 fl (9.4-12.4); MONO # 0.73 (0.24-0.82); MONO % 7.0 % (4.7-12.5); NEUT # 8.18 (1.56-6.13); NEUT % 78.7 % (34.0-71.1); RED CELL DISTRIBUTION WIDTH 16.3 % (11.6-14.4)
[2024-11-30 16:30] LABS: BUN CREA RATIO 6.0 (7.0-25.0); GFR 8.19; GLUCOSE FASTING 198.0 mg/dL (65-100); OSMOLALITY SERUM 288.0 MOSM/KG (275-295)
[2024-11-30 16:44] LABS: CREATININE SERUM 6.89 mg/dL (0.70-1.30)
[2024-11-30] MEDS ORDERED: MUPIROCIN 15 GM OINT..GM TUBE NASAL SCH (17:00)
[2024-11-30] MEDS ORDERED: FAMOTIDINE/PF 20 MG/2 ML VIAL IV SCH ×2 (17:00→21:00)
[2024-11-30] MEDS ORDERED: CARVEDILOL 12.5 MG TABLET PO SCH (17:00)
[2024-11-30] MEDS ORDERED: CHLORHEXIDINE GLUCONATE 120 ML BOTTLE TOP SCH (17:00)
[2024-11-30] MEDS ORDERED: AMINO ACIDS/PROTEIN HYDROLYS 30 ML BLIST.PACK PO SCH (17:00)
[2024-11-30] MEDS ORDERED: VITAMIN B COMPLEX/LYSINE 15 ML BLIST.PACK PO SCH (17:00)
[2024-11-30 21:39] LABS: ERYTHROCYTE SEDIMENTATION RATE > 130 mm/hr (0-20)
[2024-12-01 01:52] VITALS: BP 130/65; O2SAT 97
[2024-12-01 05:43] VITALS: BP 145/72
[2024-12-01 08:56] VITALS: BP 164/69; O2SAT 100
[2024-12-01] MEDS ORDERED: LOSARTAN POTASSIUM 100 MG TABLET PO SCH (09:00)
[2024-12-01 14:31] VITALS: BP 119/63
[2024-12-01 17:46] VITALS: BP 148/65; O2SAT 99
[2024-12-02 03:04] VITALS: BP 160/83; O2SAT 95
[2024-12-02 07:00] VITALS: BP 180/100; O2SAT 95
[2024-12-02] MEDS ORDERED: IOVERSOL 320 MG/ML - 50 ML VIAL IV ONE (17:07)
[2024-12-02] MEDS ORDERED: BUPIVACAINE HCL/MPF 0.5% 30ML VIAL ONE (17:10)
[2024-12-02 17:25] VITALS: BP 140/60
[2024-12-02] MEDS ORDERED: HEPARIN SODIUM,PORCINE/PF 100 UNIT/ML SYRINGE IV ONE (19:08)
[2024-12-02] MEDS ORDERED: MORPHINE SULFATE 4 MG/ML CARTRIDGE IV ONE (20:45)
[2024-12-03] VITALS (10 sets, daily range): BP systolic 98–198; BP diastolic 55–100; O2SAT 94–100
[2024-12-03 07:31] LABS: ALT/SGPT 14.0 U/L (12-78); AST/SGOT 16.0 U/L (15-37); BILIRUBIN TOTAL 0.42 mg/dL (0.3-1.2); BILIRUBIN,CONJUGATED 0.13 mg/dL (0.0-0.2); BUN CREA RATIO 5.0 (7.0-25.0); GFR 8.56; GLOBULINA 4.1 G/DL (2.4-3.5); GLUCOSE FASTING 121.0 mg/dL (65-100); OSMOLALITY SERUM 281.0 MOSM/KG (275-295)
[2024-12-03 07:54] LABS: CREATININE SERUM 6.63 mg/dL (0.70-1.30)
[2024-12-03] MEDS ORDERED: BUPRENORPHINE HCL 2 MG TAB.SUBL SL PRN (17:00)
[2024-12-03] MEDS ORDERED: NIFEDIPINE 60 MG TAB.SA.OSM PO SCH (17:00)
[2024-12-04] VITALS (28 sets, daily range): BP systolic 132–211; BP diastolic 61–82; O2SAT 94–100
[2024-12-04] MEDS ORDERED: CLEVIDIPINE BUTYRATE 100 ML IV SCH (05:30)
[2024-12-04 15:13] LABS: BASO % 0.6 % (0.1-1.2); EOS # 0.27 (0.04-0.54); EOS % 3.5 % (0.7-7.0); LYMPH # 1.27 (1.18-3.74); LYMPH % 16.4 % (19.3-53.1); MEAN PLATELET VOLUME 11.50 fl (9.4-12.4); MONO # 0.61 (0.24-0.82); MONO % 7.9 % (4.7-12.5); NEUT # 5.47 (1.56-6.13); NEUT % 70.4 % (34.0-71.1); RED CELL DISTRIBUTION WIDTH 16.4 % (11.6-14.4)
[2024-12-04 15:28] LABS: BUN CREA RATIO 4.0 (7.0-25.0); CREATININE SERUM 3.14 mg/dL (0.70-1.30); GFR 20.28; GLUCOSE FASTING 193.0 mg/dL (65-100); OSMOLALITY SERUM 267.0 MOSM/KG (275-295)
[2024-12-05] VITALS (24 sets, daily range): BP systolic 112–180; BP diastolic 52–93; O2SAT 98–100
[2024-12-06] VITALS (23 sets, daily range): BP systolic 124–177; BP diastolic 57–78; O2SAT 98–100
[2024-12-06] MEDS ORDERED: CLEVIDIPINE BUTYRATE 50 ML IV SCH (13:00)
[2024-12-06] MEDS ORDERED: KETOROLAC TROMETHAMINE 30 MG VIAL IV PRN (20:30)
[2024-12-07] VITALS (24 sets, daily range): BP systolic 125–177; BP diastolic 57–92; O2SAT 99–100
[2024-12-07] MEDS ORDERED: cloNIDine 0.2 MG/24 H PATCH.TDWK TD SCH (09:00)
[2024-12-07] MEDS ORDERED: CARVEDILOL 12.5 MG TABLET PO SCH (09:00)
[2024-12-07] MEDS ORDERED: NIFEDIPINE 60 MG TAB.SA.OSM PO SCH (13:00)
[2024-12-07] MEDS ORDERED: DOXAZOSIN MESYLATE 4 MG TABLET PO SCH (22:00)
[2024-12-07] MEDS ORDERED: FAMOTIDINE/PF 20 MG in 0.9 % SODIUM CHLORIDE 8 ML IV PUSH SCH (23:00)
[2024-12-08 04:00] VITALS: BP 127/56; O2SAT 100
[2024-12-08] MEDS ORDERED: CARVEDILOL 12.5 MG TABLET PO SCH (09:00)
[2024-12-08 12:09] VITALS: BP 156/66; O2SAT 100
[2024-12-08 15:26] VITALS: BP 163/71; O2SAT 100
[2024-12-08 18:17] VITALS: O2SAT 99
[2024-12-08 20:04] VITALS: O2SAT 99
[2024-12-08 22:15] VITALS: BP 112/56; O2SAT 100
[2024-12-09] VITALS (9 sets, daily range): BP systolic 123–171; BP diastolic 56–66; O2SAT 96–100
[2024-12-10] VITALS (9 sets, daily range): BP systolic 102–133; BP diastolic 63–67; O2SAT 97–100
[2024-12-10 06:21] LABS: BASO % 0.3 % (0.1-1.2); EOS # 0.04 (0.04-0.54); EOS % 0.2 % (0.7-7.0); LYMPH # 1.42 (1.18-3.74); LYMPH % 7.1 % (19.3-53.1); MEAN PLATELET VOLUME 13.00 fl (9.4-12.4); MONO # 1.65 (0.24-0.82); MONO % 8.2 % (4.7-12.5); NEUT # 16.76 (1.56-6.13); NEUT % 83.7 % (34.0-71.1); RED CELL DISTRIBUTION WIDTH 16.7 % (11.6-14.4)
[2024-12-10 06:54] LABS: BUN CREA RATIO 5.0 (7.0-25.0); GFR 12.37; GLUCOSE FASTING 137.0 mg/dL (65-100); OSMOLALITY SERUM 281.0 MOSM/KG (275-295)
[2024-12-10 07:18] LABS: CREATININE SERUM 4.82 mg/dL (0.70-1.30)
[2024-12-10] MEDS ORDERED: MEROPENEM 500 MG/VIAL VIAL IV STA (09:52)
[2024-12-10] MEDS ORDERED: FLUCONAZOLE IN NACL,ISO-OSM 200 MG/100 ML PIGGYBAG IV STA (09:52)
[2024-12-10] MEDS ORDERED: DOCUSATE SODIUM 100MG CAP PO SCH (10:46)
[2024-12-10] MEDS ORDERED: LACTULOSE 20 G/30 ML BLIST.PACK PO NR (11:00)
[2024-12-10] MEDS ORDERED: ONDANSETRON HCL 2 MG/ML VIAL IV PRN (12:30)
[2024-12-10 16:02] LABS: URINE BILIRRUBIN SMALL (NEGATIVE); URINE BLOOD LARGE; URINE KETONE TRACE (NEGATIVE); URINE LEUKOCYTE MODERATE; URINE NITRATE NEGATIVE; URINE UROBILINOGEN 0.2 E.U./dl
[2024-12-10] MEDS ORDERED: POLYETHYLENE GLYCOL 3350 17 GM BLIST.PACK PO SCH (17:00)
[2024-12-10] MEDS ORDERED: CARVEDILOL PO SCH (17:00)
[2024-12-10] MEDS ORDERED: hydrALAZINE HCL 50 MG,hydrALAZINE HCL 25 MG PO SCH (17:00)
[2024-12-10 17:16] LABS: URINE EPITHELIAL CELLS 0-4 /HPF; URINE GLUCOSE 100 MG/DL (NEGATIVE); URINE PROTEIN >=300 (NEGATIVE); URINE RBC 13-18 /HPF
[2024-12-10 17:17] LABS: URINE BACTERIA MANY
[2024-12-10 17:19] LABS: URINE APPEARANCE TURBID; URINE COLOR YELLOW; URINE WBC LOADED /hpf
[2024-12-10] MEDS ORDERED: DOXAZOSIN MESYLATE 2 MG TABLET PO SCH (21:00)
[2024-12-11] VITALS (8 sets, daily range): BP systolic 89–145; BP diastolic 52–63; O2SAT 96–100
[2024-12-11] MEDS ORDERED: MEROPENEM 500 MG/VIAL VIAL IV SCH (09:00)
[2024-12-11] MEDS ORDERED: FLUCONAZOLE IN NACL,ISO-OSM 2 MG/ML ML IV SCH (17:00)
[2024-12-11] MEDS ORDERED: FLUCONAZOLE IN NACL,ISO-OSM 100 MG/50 ML PIGGYBAG IV SCH (17:00)
[2024-12-11 19:51] LABS: BASO % 0.3 % (0.1-1.2); EOS # 0.16 (0.04-0.54); EOS % 1.6 % (0.7-7.0); LYMPH # 1.18 (1.18-3.74); LYMPH % 12.1 % (19.3-53.1); MEAN PLATELET VOLUME 12.90 fl (9.4-12.4); MONO # 1.06 (0.24-0.82); MONO % 10.8 % (4.7-12.5); NEUT # 7.31 (1.56-6.13); NEUT % 74.8 % (34.0-71.1); RED CELL DISTRIBUTION WIDTH 15.9 % (11.6-14.4)
[2024-12-11] MEDS ORDERED: KETOROLAC TROMETHAMINE 30 MG VIAL IV PRN (23:45)
[2024-12-12] VITALS (9 sets, daily range): BP systolic 120–193; BP diastolic 65–88; O2SAT 90–99
[2024-12-12] MEDS ORDERED: CLOTRIMAZOLE 30 GM TUBE TOP STA (13:07)
[2024-12-12] MEDS ORDERED: LOPERAMIDE HCL 2 MG CAPSULE PO PRN (13:30)
[2024-12-12] MEDS ORDERED: CLOTRIMAZOLE 30 GM TUBE TOP SCH (21:00)
[2024-12-13] VITALS (8 sets, daily range): BP systolic 113–130; BP diastolic 61–62; O2SAT 96–100
[2024-12-13] MEDS ORDERED: POLYETHYLENE GLYCOL 3350 17 GM BLIST.PACK PO SCH (09:00)
[2024-12-14] VITALS (8 sets, daily range): BP systolic 106–150; BP diastolic 66–76; O2SAT 98–100
[2024-12-15] VITALS (8 sets, daily range): BP systolic 126–137; BP diastolic 63–66; O2SAT 97–100
[2024-12-15] MEDS ORDERED: FLUTICASONE PROPIONATE 50 MCG SPRAY NASAL STA (12:26)
[2024-12-15] MEDS ORDERED: VANCOMYCIN HCL 500 MG VIAL IV SCH (12:30)
[2024-12-15] MEDS ORDERED: BUPIVACAINE HCL/MPF 0.5% 30ML VIAL ONE (21:18)
[2024-12-15] MEDS ORDERED: IOVERSOL 320 MG/ML - 50 ML VIAL IV ONE (21:18)
[2024-12-15] MEDS ORDERED: LIDOCAINE HCL 1%/EPINEPHRINE 10 ML VIAL IJ ONE (21:29)
[2024-12-15] MEDS ORDERED: HEPARIN SODIUM,PORCINE/PF 100 UNIT/ML SYRINGE IV ONE (21:30)
[2024-12-15] MEDS ORDERED: BUPIVACAINE HCL 30 ML VIAL IJ ONE (22:30)
[2024-12-16] VITALS (10 sets, daily range): BP systolic 151–195; BP diastolic 67–85; O2SAT 95–100
[2024-12-16] MEDS ORDERED: ENALAPRILAT DIHYDRATE 1.25 MG/ML VIAL IV ONE (00:11)
[2024-12-16] MEDS ORDERED: FLUTICASONE PROPIONATE 50 MCG SPRAY NASAL SCH (09:00)
[2024-12-16 09:29] LABS: URINE APPEARANCE Cloudy; URINE BILIRRUBIN Negative (NEGATIVE); URINE BLOOD Negative; URINE COLOR Yellow; URINE KETONE Negative (NEGATIVE); URINE LEUKOCYTE Small; URINE NITRATE Negative; URINE UROBILINOGEN 0.2 E.U./dl
[2024-12-16 09:30] LABS: URINE BACTERIA 165.5 uL (0.0-1933); URINE CAST 2.19 uL (0.0-1.40); URINE EPITHELIAL CELLS 10.9 uL (0.0-38.8); URINE RBC 15.6 uL (0.0-20.8); URINE WBC 194.2 uL (0.0-23.2)
[2024-12-16 10:23] LABS: URINE GLUCOSE 100 MG/DL (NEGATIVE); URINE PROTEIN 300 (NEGATIVE)
[2024-12-16 10:30] LABS: TYPE CELLS SQUAMOUS; URINE CRYSTALS FEW /HPF
[2024-12-17] VITALS (10 sets, daily range): BP systolic 116–160; BP diastolic 64–75; O2SAT 97–99
[2024-12-17 06:49] LABS: BASO % 1.1 % (0.1-1.2); EOS # 0.27 (0.04-0.54); EOS % 6.1 % (0.7-7.0); LYMPH # 1.28 (1.18-3.74); LYMPH % 28.8 % (19.3-53.1); MEAN PLATELET VOLUME 12.70 fl (9.4-12.4); MONO # 0.64 (0.24-0.82); NEUT # 2.19 (1.56-6.13); NEUT % 49.2 % (34.0-71.1); RED CELL DISTRIBUTION WIDTH 15.6 % (11.6-14.4)
[2024-12-17 06:57] LABS: MONO % 14.4 % (4.7-12.5)
[2024-12-17 07:18] LABS: BUN CREA RATIO 6.0 (7.0-25.0); GFR 8.92; GLUCOSE FASTING 105.0 mg/dL (65-100); OSMOLALITY SERUM 279.0 MOSM/KG (275-295)
[2024-12-17 07:42] LABS: CREATININE SERUM 6.4 mg/dL (0.70-1.30)
[2024-12-17] MEDS ORDERED: KETOROLAC TROMETHAMINE 30 MG VIAL IV PRN (12:30)
[2024-12-17] MEDS ORDERED: EPOETIN ALFA-EPBX 10,000 UNIT/ML VIAL (Retacrit) SUBCUTANEO SCH (17:00)
[2024-12-17] MEDS ORDERED: MUPIROCIN 22 GM OINT..GM TUBE NASAL SCH (17:00)
[2024-12-18] VITALS (9 sets, daily range): BP systolic 119–173; BP diastolic 64–78; O2SAT 94–99
[2024-12-18 20:05] LABS: COVID-19 AG NEGATIVE (NEGATIVE)
[2024-12-19 02:16] VITALS: BP 167/74; O2SAT 98
[2024-12-19 03:06] VITALS: O2SAT 98
[2024-12-19 10:36] VITALS: O2SAT 98
[2024-12-19 11:19] VITALS: BP 178/69; O2SAT 99
[2024-12-19 14:01] VITALS: O2SAT 96
== END 2024-12-19 17:48 | DRG 673 ==
LOC: ER 16:19 → MEDJ 23:52 → SEC-K 23:52 → ICU 23:52 → MEDJ 11-28 16:47 → ICU 12-03 19:22 → MEDJ 12-08 17:39
PROVIDERS: General Practice; Internal Medicine Infectious Disease; Radiology Vascular & Interventional Radiology; Student in an Organized Health Care Education/Training Program; ADMIT Internal Medicine; ATTEND Internal Medicine
PROC: BW21ZZZ Computerized Tomography (CT Scan) of Abdomen and Pelvis (ICD-10-PCS; 2024-11-27)
PROC: B246ZZZ Ultrasonography of Right and Left Heart (ICD-10-PCS; 2024-11-27)
PROC: BR29ZZZ Computerized Tomography (CT Scan) of Lumbar Spine (ICD-10-PCS; 2024-11-27)
PROC: BB24ZZZ Computerized Tomography (CT Scan) of Bilateral Lungs (ICD-10-PCS; 2024-11-27)
PROC: 5A1D70Z Performance of Urinary Filtration, Intermittent, Less than 6 Hours Per Day (ICD-10-PCS; 2024-11-28)
PROC: 4A12X4Z Monitoring of Cardiac Electrical Activity, External Approach (ICD-10-PCS; 2024-11-28)
PROC: 8E0ZXY6 Isolation (ICD-10-PCS; 2024-11-28)
PROC: CW1N1ZZ Planar Nuclear Medicine Imaging of Whole Body using Technetium 99m (Tc-99m) (ICD-10-PCS; 2024-11-30)
PROC: 5A1D70Z Performance of Urinary Filtration, Intermittent, Less than 6 Hours Per Day (ICD-10-PCS; 2024-12-01)
PROC: 05PY33Z Removal of Infusion Device from Upper Vein, Percutaneous Approach (ICD-10-PCS; 2024-12-02)
PROC: B513YZA Fluoroscopy of Right Jugular Veins using Other Contrast, Guidance (ICD-10-PCS; 2024-12-02)
PROC: 05HM33Z Insertion of Infusion Device into Right Internal Jugular Vein, Percutaneous Approach (ICD-10-PCS; 2024-12-02)
PROC: 05PYX3Z Removal of Infusion Device from Upper Vein, External Approach (ICD-10-PCS; 2024-12-02)
PROC: B543ZZA Ultrasonography of Right Jugular Veins, Guidance (ICD-10-PCS; 2024-12-02)
PROC: 5A1D70Z Performance of Urinary Filtration, Intermittent, Less than 6 Hours Per Day (ICD-10-PCS; 2024-12-03)
PROC: B543ZZA Ultrasonography of Right Jugular Veins, Guidance (ICD-10-PCS; 2024-12-04)
PROC: 06HY33Z Insertion of Infusion Device into Lower Vein, Percutaneous Approach (ICD-10-PCS; 2024-12-04)
PROC: 5A1D70Z Performance of Urinary Filtration, Intermittent, Less than 6 Hours Per Day (ICD-10-PCS; 2024-12-04)
PROC: 5A1D70Z Performance of Urinary Filtration, Intermittent, Less than 6 Hours Per Day (ICD-10-PCS; 2024-12-07)
PROC: 5A1D70Z Performance of Urinary Filtration, Intermittent, Less than 6 Hours Per Day (ICD-10-PCS; 2024-12-09)
PROC: 5A1D70Z Performance of Urinary Filtration, Intermittent, Less than 6 Hours Per Day (ICD-10-PCS; 2024-12-11)
PROC: 30243N1 Transfusion of Nonautologous Red Blood Cells into Central Vein, Percutaneous Approach (ICD-10-PCS; 2024-12-11)
PROC: 05HM33Z Insertion of Infusion Device into Right Internal Jugular Vein, Percutaneous Approach (ICD-10-PCS; 2024-12-15)
PROC: 05PY03Z Removal of Infusion Device from Upper Vein, Open Approach (ICD-10-PCS; 2024-12-15)
PROC: B513YZA Fluoroscopy of Right Jugular Veins using Other Contrast, Guidance (ICD-10-PCS; 2024-12-15)
PROC: 0JH63XZ Insertion of Tunneled Vascular Access Device into Chest Subcutaneous Tissue and Fascia, Percutaneous Approach (ICD-10-PCS; principal; 2024-12-15 21:30)
PROC: 5A1D70Z Performance of Urinary Filtration, Intermittent, Less than 6 Hours Per Day (ICD-10-PCS; 2024-12-16)
PROC: 5A1D70Z Performance of Urinary Filtration, Intermittent, Less than 6 Hours Per Day (ICD-10-PCS; 2024-12-18)
DX: N18.6 End stage renal disease (principal); A41.02 Sepsis due to Methicillin resistant Staphylococcus aureus; J18.8 Other pneumonia, unspecified organism; T80.211A Bloodstream infection due to central venous catheter, initial encounter; M46.24 Osteomyelitis of vertebra, thoracic region; N39.0 Urinary tract infection, site not specified; T82.41XA Breakdown (mechanical) of vascular dialysis catheter, initial encounter; R26.89 Other abnormalities of gait and mobility; D64.89 Other specified anemias; I12.0 Hypertensive chronic kidney disease with stage 5 chronic kidney disease or end stage renal disease; E11.22 Type 2 diabetes mellitus with diabetic chronic kidney disease; B96.20 Unspecified Escherichia coli [E. coli] as the cause of diseases classified elsewhere; I95.3 Hypotension of hemodialysis; R19.7 Diarrhea, unspecified; M46.44 Discitis, unspecified, thoracic region; D63.1 Anemia in chronic kidney disease; E78.5 Hyperlipidemia, unspecified; Z99.2 Dependence on renal dialysis; Z79.4 Long term (current) use of insulin; Z74.01 Bed confinement status; Y65.8 Other specified misadventures during surgical and medical care; Y92.230 Patient room in hospital as the place of occurrence of the external cause